=== PATIENT | male | born 1970 | race Caucasian/White ===

== ENCOUNTER 2020-01-28 19:03 | Observation (INO) | payer OTHER ==
--- NOTE | 2020-01-28 19:23 | ED ---
General Adult HPI - General Chief complaint: Chest Pain Stated complaint: Chest tightness/neck pain/fatigue Time Seen by Provider: 01/28/20 19:16 Source: patient, RN notes reviewed, old records reviewed Mode of arrival: ambulatory Limitations: no limitations - History of Present Illness Initial comments: 49-year-old male presented for evaluation of left-sided chest pain and pressure. Patient's symptoms have been present for approximately one week. Constant in nature. Not worsened by exertion. He has no known history of coronary artery disease. He denies any dyspnea. Denies fever. He states he has a mild cough which is at baseline. He is a current smoker. Denies lower extremity pain or swelling. Denies abdominal pain nausea vomiting. He did have some vague discomfort in his neck and has had some fatigue over the last week. No other associated symptoms. - Related Data Home Medications Medication Instructions Recorded Confirmed Hydrochlorothiazide 12.5 mg PO DAILY 01/28/20 01/28/20 Sertraline HCl [Zoloft] 50 mg PO BID 01/28/20 01/28/20 Allergies Allergy/AdvReac Type Severity Reaction Status Date / Time No Known Allergies Allergy Verified 01/28/20 19:56 Review of Systems ROS Statement: Those systems with pertinent positive or pertinent negative responses have been documented in the HPI. ROS Other: All systems not noted in ROS Statement are negative. Past Medical History Past Medical History: Hypertension History of Any Multi-Drug Resistant Organisms: None Reported Additional Past Surgical History / Comment(s): HEMORRHOIDECTOMY Past Anesthesia/Blood Transfusion Reactions: No Reported Reaction Past Psychological History: Anxiety Smoking Status: Current every day smoker Past Alcohol Use History: Occasional Past Drug Use History: None Reported - Past Family History Father Family Medical History: Cancer General Exam Limitations: no limitations General appearance: alert, in no apparent distress Head exam: Present: atraumatic, normocephalic Eye exam: Present: normal appearance, PERRL ENT exam: Present: normal exam Neck exam: Present: normal inspection. Absent: tenderness, meningismus Respiratory exam: Present: normal lung sounds bilaterally. Absent: respiratory distress, wheezes Cardiovascular Exam: Present: regular rate, normal rhythm, normal heart sounds GI/Abdominal exam: Present: soft. Absent: distended, tenderness, guarding, rebound Extremities exam: Present: normal inspection, normal capillary refill. Absent: pedal edema, calf tenderness Back exam: Present: normal inspection Neurological exam: Present: alert, oriented X3, CN II-XII intact. Absent: motor sensory deficit Psychiatric exam: Present: normal affect, normal mood Skin exam: Present: warm, dry, intact. Absent: cyanosis, diaphoretic Course Vital Signs 01/28/20 01/28/20 19:08 20:39 Temperature 98.0 F Pulse Rate 79 77 Respiratory 18 18 Rate Blood Pressure 160/72 146/71 O2 Sat by Pulse 98 96 Oximetry EKG Findings - EKG Comments: EKG Findings:: EKG: Normal sinus rhythm, rate of 81, WA interval 154, QRS duration 86, QTC 418, no ST segment elevation Medical Decision Making - Medical Decision Making 53-year-old male with history of hypertension, and current tobacco use presenting with left-sided chest pain and pressure. EKG showing sinus rhythm with no ST segment elevation. Chest x-ray negative for acute cardiopulmonary disease. Patient has mild leukocytosis, stable hemoglobin. He has normal electrolytes. Initial troponin is negative. Given this patient's risk factors he will be kept in observation for serial cardiac enzymes, telemetry, cardiology consultation. I discussed the case with the patient's primary care physician Dr. Ventura who will accept admission. - Lab Data Result diagrams: 01/28/20 19:20 01/28/20 19:20 Lab Results 01/28/20 01/28/20 01/28/20 Range/Units 19:20 19:20 19:20 WBC 12.2 H (3.8-10.6) k/uL RBC 4.76 (4.30-5.90) m/uL Hgb 14.2 (13.0-17.5) gm/dL Hct 42.5 (39.0-53.0) % MCV 89.2 (80.0-100.0) fL MCH 29.9 (25.0-35.0) pg MCHC 33.5 (31.0-37.0) g/dL RDW 13.0 (11.5-15.5) % Plt Count 294 (150-450) k/uL Neutrophils % 60 % Lymphocytes % 28 % Monocytes % 7 % Eosinophils % 2 % Basophils % 1 % Neutrophils # 7.3 (1.3-7.7) k/uL Lymphocytes # 3.4 (1.0-4.8) k/uL Monocytes # 0.9 (0-1.0) k/uL Eosinophils # 0.3 (0-0.7) k/uL Basophils # 0.1 (0-0.2) k/uL PT 9.6 (9.0-12.0) sec INR 0.9 (<1.2) APTT 24.3 (22.0-30.0) sec Sodium 133 L (137-145) mmol/L Potassium 4.1 (3.5-5.1) mmol/L Chloride 101 (98-107) mmol/L Carbon Dioxide 25 (22-30) mmol/L Anion Gap 7 mmol/L BUN 17 (9-20) mg/dL Creatinine 0.98 (0.66-1.25) mg/dL Est GFR (CKD-EPI)AfAm >90 (>60 ml/min/1.73 sqM) Est GFR (CKD-EPI)NonAf >90 (>60 ml/min/1.73 sqM) Glucose 106 H (74-99) mg/dL Calcium 9.6 (8.4-10.2) mg/dL Magnesium 2.1 (1.6-2.3) mg/dL Total Bilirubin <0.1 L (0.2-1.3) mg/dL AST 31 (17-59) U/L ALT 19 (4-49) U/L Alkaline Phosphatase 92 (38-126) U/L Troponin I (0.000-0.034) ng/mL NT-Pro-B Natriuret Pep pg/mL Total Protein 6.7 (6.3-8.2) g/dL Albumin 4.2 (3.5-5.0) g/dL Lipase 141 (23-300) U/L 01/28/20 01/28/20 Range/Units 19:20 19:20 WBC (3.8-10.6) k/uL RBC (4.30-5.90) m/uL Hgb (13.0-17.5) gm/dL Hct (39.0-53.0) % MCV (80.0-100.0) fL MCH (25.0-35.0) pg MCHC (31.0-37.0) g/dL RDW (11.5-15.5) % Plt Count (150-450) k/uL Neutrophils % % Lymphocytes % % Monocytes % % Eosinophils % % Basophils % % Neutrophils # (1.3-7.7) k/uL Lymphocytes # (1.0-4.8) k/uL Monocytes # (0-1.0) k/uL Eosinophils # (0-0.7) k/uL Basophils # (0-0.2) k/uL PT (9.0-12.0) sec INR (<1.2) APTT (22.0-30.0) sec Sodium (137-145) mmol/L Potassium (3.5-5.1) mmol/L Chloride (98-107) mmol/L Carbon Dioxide (22-30) mmol/L Anion Gap mmol/L BUN (9-20) mg/dL Creatinine (0.66-1.25) mg/dL Est GFR (CKD-EPI)AfAm (>60 ml/min/1.73 sqM) Est GFR (CKD-EPI)NonAf (>60 ml/min/1.73 sqM) Glucose (74-99) mg/dL Calcium (8.4-10.2) mg/dL Magnesium (1.6-2.3) mg/dL Total Bilirubin (0.2-1.3) mg/dL AST (17-59) U/L ALT (4-49) U/L Alkaline Phosphatase (38-126) U/L Troponin I <0.012 (0.000-0.034) ng/mL NT-Pro-B Natriuret Pep 34 pg/mL Total Protein (6.3-8.2) g/dL Albumin (3.5-5.0) g/dL Lipase (23-300) U/L Disposition Clinical Impression: Chest pain Disposition: ADMITTED IP TO THIS [facility] Condition: Stable Is patient prescribed a controlled substance at d/c from ED?: No Referrals: Kayode Ventura MD [Primary Care Provider] - 1-2 days Decision to Admit Reason: Admit from EC Decision Date: 01/28/20 Decision Time: 20:57
[2020-01-28 19:38] LABS: Basophils # (A) 0.1 k/uL (0-0.2); Basophils % (A) 1 %; Eosinophils # (A) 0.3 k/uL (0-0.7); Eosinophils % (A) 2 %; HCT 42.5 % (39.0-53.0); HGB 14.2 gm/dL (13.0-17.5); Lymphocytes # (A) 3.4 k/uL (1.0-4.8); Lymphocytes % (A) 28 %; MCH 29.9 pg (25.0-35.0); MCHC 33.5 g/dL (31.0-37.0); MCV 89.2 fL (80.0-100.0); Mean Platelet Volume 7.2; Monocytes # (A) 0.9 k/uL (0-1.0); Monocytes % (A) 7 %; Neutrophils # (A) 7.3 k/uL (1.3-7.7); Neutrophils % (A) 60 %; Platelet Count 294 k/uL (150-450); RBC 4.76 m/uL (4.30-5.90); WBC 12.2 k/uL (3.8-10.6)
--- NOTE | 2020-01-28 19:42 | XR ---
EXAMINATION TYPE: XR chest 2V DATE OF EXAM: 01/28/2020 COMPARISON: NONE HISTORY: Weakness TECHNIQUE: FINDINGS: Heart and mediastinum are normal. Lungs are clear. Diaphragm is normal. Bony thorax appears normal. There are chest leads. IMPRESSION: Normal chest.
[2020-01-28 19:45] LABS: ALT 19 U/L (4-49); AST 31 U/L (17-59); African American GFR (CKD) >90 (>60 ml/min/1.73 sqM); Albumin 4.2 g/dL (3.5-5.0); Alkaline Phosphatase 92 U/L (38-126); Anion Gap 7 mmol/L; Blood Urea Nitrogen 17 mg/dL (9-20); Calcium 9.6 mg/dL (8.4-10.2); Carbon Dioxide 25 mmol/L (22-30); Chloride 101 mmol/L (98-107); Glucose 106 mg/dL (74-99); Magnesium 2.1 mg/dL (1.6-2.3); Non-African American GFR(CKD) >90 (>60 ml/min/1.73 sqM); Potassium 4.1 mmol/L (3.5-5.1); Sodium 133 mmol/L (137-145); Total Bilirubin <0.1 mg/dL (0.2-1.3); Total Protein 6.7 g/dL (6.3-8.2)
[2020-01-28 20:03] LABS: INR 0.9 (<1.2)
[2020-01-28 20:04] LABS: Partial Thromboplastin Time 24.3 sec (22.0-30.0); Prothrombin Time 9.6 sec (9.0-12.0)
[2020-01-28] MEDS ORDERED: ASPIRIN 325 MG TAB PO STA (20:21)
[2020-01-28] MEDS ORDERED: MORPHINE SULFATE 4 MG/ML SYRINGE IV PRN (20:54)
[2020-01-28] MEDS ORDERED: NALOXONE 0.4 MG/ML 1 ML VIAL IV PRN (20:54)
[2020-01-28] MEDS ORDERED: ACETAMINOPHEN TAB 325 MG TAB PO PRN (20:54)
[2020-01-29] MEDS ORDERED: ASPIRIN 325 MG TAB PO SCH (09:00)
[2020-01-29] MEDS ORDERED: HYDROCHLOROTHIAZIDE 12.5 MG CAP PO SCH (09:00)
[2020-01-29 09:04] VITALS: RESP 16
[2020-01-29] MEDS ORDERED: ASPIRIN 81 MG PO SCH (09:30)
--- NOTE | 2020-01-29 09:45 | CONS ---
CONSULTATION Mr. Richard is a 49-year-old male with known history of hypertension, chronic tobacco use, who presented with symptoms of chest discomfort. The discomfort started a week ago, not activity related and constant. He did not have any respiratory phasic or positional pattern to it. He is usually active physically, has no exertional chest pain. Has no significant dyspnea on exertion. No dizziness. No palpitation. No syncope. No PND, nor orthopnea. He has no prior documented history of cardiac disease. MEDICATIONS: Include Zoloft 200 mg daily, hydrochlorothiazide 12 0.5 mg daily. REVIEW OF SYSTEMS: RESPIRATORY SYSTEM: Has no recent wheezing. No cough. No history of obstructive lung disease. GI SYSTEM: No recent GI bleed. No peptic ulcer disease. Gu System: No dysuria or hematuria. NERVOUS SYSTEM: No stroke or seizure. PHYSICAL EXAMINATION: A 49-year-old male, alert, oriented, in no apparent distress. Blood pressure 126/70 with a heart in the 60s. HEAD: Normocephalic. EYES: Sclerae nonicteric. NECK: Good upstroke, no bruit, no shunts tension clear to auscultation heart rhythm S1, S2. No S3. No S4. No murmur or rub. ABDOMEN: Soft nontender positive bowel sounds no organomegaly. EXTREMITIES: No edema, intact distal pulses. LAB DATA: Revealed troponin less than 0.012 for 3 samples. BUN and creatinine 17 and 0.98, potassium 4.1, hemoglobin of 14.2, white blood cell of 12.2. EKG revealed a sinus mechanism, normal axis and intervals. No acute changes. The chest x-ray revealed no acute infiltrate. IMPRESSION: 1. Chest discomfort of unclear etiology, has some atypical features for ischemic heart disease. 2. Chronic tobacco use. 3. Hypertension. RECOMMENDATION: I have recommend proceeding with a stress echocardiogram and a transthoracic echo to further assess his status and guide his treatment. Depending on the results of testing, further recommendation will be made. I have encouraged him to stop smoking. Thank you for this consult. Will follow with you. ESPINOZAL / GEORGESN: [id number] /
[2020-01-29 10:28] LABS: Cholesterol 210 mg/dL (<200); HDL Cholesterol 38 mg/dL (40-60); LDL Cholesterol,Calculated 134 mg/dL (0-99); Triglycerides 191 mg/dL (<150)
[2020-01-29 12:05] VITALS: TEMP 98.1
--- NOTE | 2020-01-29 13:27 | HP ---
HISTORY AND PHYSICAL This is a 49-year-old with history of hypertension, nicotine addiction with some chest discomfort, more like a pressure in his left side of his chest that he has had over 3 or 4 days. Did not have any cough, congestion, shortness of breath with exertion. Not made better by food, but he does eat lots of food late night before he goes to bed. He has a history of bad GERD. No history of cardiac disease, but he smokes a pack and half a day and he has severe stress in his life. HOME MEDICATIONS: 1. Zoloft 200 b.i.d. 2. Hydrochlorothiazide 12.5 b.i.d. once a day. REVIEW OF SYSTEMS: Fourteen-point review of system positive for: PSYCH: Anxiety. LUNGS: Clear. CARDIAC: Negative. VASCULAR: Negative. HEMATOLOGIC: Negative. IMMUNE: Negative. ENDOCRINE: He has been overweight, although he states he has lost some weight. PHYSICAL EXAMINATION: He appears anxious, nervous 49-year-old white male. He is sitting up in bed, eating dinner. His blood pressure 126/70, heart rate in the 60s. HEAD: Normocephalic, atraumatic. Pupils equal, round, reactive to light and accommodation. S1, S2. ABDOMEN: Soft, nontender. Positive bowel signs. EXTREMITIES: No edema. MUSCULOSKELETAL: Range of motion full x4. BMI is over 40. Troponins have been negative. BUN 17, creatinine 0.98, potassium 4.1, hemoglobin 14.2, white count 12.2. Chest x-ray is negative. D-dimer is negative. EKG nonspecific. ASSESSMENT: Atypical chest pain. He is going to get a stress echo today and if he passes that he will be able to be cleared by Cardiology and be discharged home. Nicotine cessation counseling was given to him. Blood pressure modification was given to him. Depression treatment. Treatment for GERD. No supine lying down, elevate head of his bed, no late night eating, that has all been discussed. MMODL / IJN: [id number] /
[2020-01-29 15:29] VITALS: BP 130/62; PULSE 70
--- NOTE | 2020-01-29 17:39 | ECHOF ---
Referral Reason:cp MEASUREMENTS -------- HEIGHT: 182.9 cm WEIGHT: 100.7 kg BP: IVSd: 1.1 cm (0.6 - 1.1) LVIDd: 4.4 cm (3.9 - 5.3) LVPWd: 1.3 cm (0.6 - 1.1) IVSs: 1.3 cm LVIDs: 2.7 cm LVPWs: 1.8 cm Ao Diam: 3.3 cm (2.0 - 3.7) AV Cusp: 2.1 cm (1.5 - 2.6) LA Diam: 3.3 cm (2.7 - 3.8) MV EXCURSION: 13.189 mm (> 18.000) MV EF SLOPE: 79 mm/s (70 - 150) EPSS: 0.8 cm MV E Peter: 0.88 m/s MV DecT: 253 ms MV A Peter: 0.50 m/s MV E/A Ratio: 1.77 RAP: 5.00 mmHg RVSP: 21.15 mmHg FINDINGS -------- Sinus rhythm. This was a technically good study. The left ventricular size is normal. Left ventricular wall thickness is normal. Overall left vent ricular systolic function is normal with, an EF between 55 - 60 %. The diastolic filling pattern is normal for the age of the patient 11.43. The right ventricle is normal in size. The left atrial size is normal. Normal LA size by volume 22+/-6 ml/m2. The right atrial size is normal. The aortic valve is trileaflet and appears structurally normal. The mitral valve is normal. There is trace mitral regurgitation. The tricuspid valve appears structurally normal. Trace tricuspid regurgitation present. Right mario tricular systolic pressure is normal at < 35 mmHg. There is no pulmonic regurgitation present. The aortic root size is normal. Normal inferior vena cava with normal inspiratory collapse consistent with estimated right atrial pre ssure of 5 mmHg. There is no pericardial effusion. CONCLUSIONS -------- 1. Sinus rhythm. 2. This was a technically good study. 3. The left ventricular size is normal. 4. Left ventricular wall thickness is normal. 5. Overall left ventricular systolic function is normal with, an EF between 55 - 60 %. 6. The diastolic filling pattern is normal for the age of the patient 11.43 7. The right ventricle is normal in size. 8. The left atrial size is normal. 9. Normal LA size by volume 22+/-6 ml/m2. 10. The right atrial size is normal. 11. The aortic valve is trileaflet and appears structurally normal. 12. The mitral valve is normal. 13. There is trace mitral regurgitation. 14. The tricuspid valve appears structurally normal. 15. Trace tricuspid regurgitation present. 16. Right ventricular systolic pressure is normal at < 35 mmHg. 17. There is no pulmonic regurgitation present. 18. The aortic root size is normal. 19. Normal inferior vena cava with normal inspiratory collapse consistent with estimated right atrial pressure of 5 mmHg. 20. There is no pericardial effusion. MANAGER BRAND: Estela Crisostomo RDCS
[2020-01-29] MEDS ORDERED: SERTRALINE 100 MG TAB PO SCH (21:00)
--- NOTE | 2020-01-30 11:12 | ECHOS ---
STRESS ECHOCARDIOGRAM INDICATIONS: Chest pain. MEDICATIONS: BASELINE HEART RATE: 68 BASELINE BLOOD PRESSURE: 136/55 MAXIMUM HEART RATE: 157 MAXIMUM BLOOD PRESSURE: 220/42 85% MPHR: 145 100% MPHR: 170 METS: 11.5 MAXIMUM STAGE REACHED: IV TOTAL EXERCISE TIME: 10 minutes CLINICAL INFORMATION: This is a stress echocardiographic study. Patient was exercised for a total period of 10 minutes. The peak heart rate of 157 was achieved. Maximum blood pressure of 220/42 mmHg was noted. The resting EKG shows normal sinus rhythm with normal MA interval and QRS duration and normal ST-T waves. No ST-segment depression suggestive of ischemia was noted. The baseline echocardiographic images reveals normal left ventricular chamber size with normal left ventricular systolic function. In the immediate postexercise periods, normal increase in the wall thickness and contractility is noted. FINAL IMPRESSION: This stress echocardiographic study is negative for stress-induced ischemia. Patient's exercise tolerance is normal. No dysrhythmias are noted. MMODL / IJN: [id number] /
== END 2020-01-29 19:09 | disposition home or self-care (01) ==
LOC: EC 19:03 → 1SOBS 20:54 → 3SCARD 01-29 07:49
PROVIDERS: ADMIT Family Medicine; ATTEND Family Medicine
DX: R07.89 Other chest pain (principal); M54.2 Cervicalgia; R53.83 Other fatigue; I10 Essential (primary) hypertension; F41.9 Anxiety disorder, unspecified; F17.210 Nicotine dependence, cigarettes, uncomplicated; K21.9 Gastro-esophageal reflux disease without esophagitis; Z79.899 Other long term (current) drug therapy; Z80.9 Family history of malignant neoplasm, unspecified; Z71.6 Tobacco abuse counseling
CPT/HCPCS: 99285; 36415; 93005; 93306; 93351; 85379; 83880; 80061; 80053; 83690; 83735; 84484 ×2; 85025; 85610; 85730; 71046; G0378 ×2

== ENCOUNTER → 2020-05-28 | Outpatient (CLI) | payer OTHER ==
[2020-05-28 12:38] LABS: Basophils # (A) 0.1 k/uL (0-0.2); Basophils % (A) 1 %; Eosinophils # (A) 0.1 k/uL (0-0.7); Eosinophils % (A) 1 %; HCT 44.9 % (39.0-53.0); Lymphocytes # (A) 3.1 k/uL (1.0-4.8); Lymphocytes % (A) 26 %; MCH 30.9 pg (25.0-35.0); MCHC 33.3 g/dL (31.0-37.0); MCV 92.6 fL (80.0-100.0); Mean Platelet Volume 7.2; Monocytes # (A) 0.7 k/uL (0-1.0); Monocytes % (A) 6 %; Neutrophils # (A) 7.7 k/uL (1.3-7.7); Neutrophils % (A) 65 %; Platelet Count 282 k/uL (150-450); RBC 4.84 m/uL (4.30-5.90); RDW 13.5 % (11.5-15.5); WBC 11.9 k/uL (3.8-10.6)
== END | disposition home or self-care (01) ==
LOC: LABPAT 10:25
PROVIDERS: ATTEND Surgery
DX: Z01.818 Encounter for other preprocedural examination (principal); K21.0 Gastro-esophageal reflux disease with esophagitis
CPT/HCPCS: 36415; 85025

== ENCOUNTER 2020-06-02 11:34 | Day surgery (SDC) | payer BC, OTHER ==
[2020-05-29 11:25] VITALS: BMI 29.9
[~2020-06-02 11:34] MED LIST: LACTATED RINGERS 1,000 ML IV SCH
[2020-06-02 11:53] VITALS: TEMP 98.1
[2020-06-02] MEDS ORDERED: LIDOCAINE 1% (10MG/ML) FOR IV START INTRADERMA ONE (11:54)
[2020-06-02] MEDS ORDERED: MIDAZOLAM 2 MG/2 ML VIAL ONE (12:23)
[2020-06-02] MEDS ORDERED: PROPOFOL 10 MG/ML 20 ML VIAL IV ONE (12:23)
[2020-06-02] MEDS ORDERED: LIDOCAINE 1% INJ 10MG/ML (20 ML MDV) ONE (12:23)
--- NOTE | 2020-06-02 12:27 | P.GSHP ---
History of Present Illness H&P Date: 06/02/20 Chief Complaint: GERD This 49-year-old male referred from Dr. Kayode Hoffmann. Patient safer EGD. He's had issues with GERD. Past Medical History Past Medical History: Asthma, Chest Pain / Angina, GERD/Reflux, Hypertension, Pneumonia, Sleep Apnea/CPAP/BIPAP Additional Past Medical History / Comment(s): Pt states he had a nuclear stress test when he was 25 or 26 yrs [id number] attributes his chest pain at that time to anxiety, ROXY with CPap, childhood asthma, bronchitis. History of Any Multi-Drug Resistant Organisms: None Reported Additional Past Surgical History / Comment(s): HEMORRHOIDECTOMY, EGD, colonoscopy, deviated septal surgery, bilateral cataract removals/lens implants. family hx of barretts esophagus and esophageal cancer Past Anesthesia/Blood Transfusion Reactions: No Reported Reaction Smoking Status: Current every day smoker - Past Family History Father Family Medical History: Cancer Additional Family Medical History / Comment(s): Father of metastatic cancer (primary unknown) at the age of 62 yrs. Mother Family Medical History: No Reported History Additional Family Medical History / Comment(s): Mother is healthy and is 78yrs old. Medications and Allergies Home Medications Medication Instructions Recorded Confirmed Type Hydrochlorothiazide 25 mg PO DAILY 01/28/20 06/02/20 History Aspirin 81 mg PO DAILY #0 chewable 01/29/20 06/02/20 Rx Sertraline [Zoloft] 200 mg PO HS 01/29/20 06/02/20 History Albuterol Inhaler [Ventolin Hfa 1 puff INHALATION DAILY PRN 05/29/20 06/02/20 History Inhaler] Omeprazole [PriLOSEC] 40 mg PO BID 05/29/20 06/02/20 History Allergies Allergy/AdvReac Type Severity Reaction Status Date / Time No Known Allergies Allergy Verified 06/02/20 11:49 Surgical - Exam Vital Signs Temp Pulse Resp BP Pulse Ox 98.1 F 102 H 18 168/84 97 06/02/20 11:51 06/02/20 11:51 06/02/20 11:51 06/02/20 11:51 06/02/20 11:51 - General well developed, well nourished, no distress - Eyes PERRL - ENT normal pinna - Neck no masses - Respiratory normal expansion - Cardiovascular Rhythm: regular - Abdomen Abdomen: soft, non tender Assessment and Plan Assessment: GERD. We'll perform EGD.
--- NOTE | 2020-06-02 12:35 | P.OP ---
Date of Procedure: 06/02/20 Preoperative Diagnosis: GERD Postoperative Diagnosis: Mild antral gastritis Severe erosive esophagitis Small hiatal hernia Procedure(s) Performed: EGD Anesthesia: MAC Surgeon: Jun Canchola Pathology: other (Antrum, esophagus) Condition: stable Disposition: PACU Description of Procedure: The patient's placed on the endoscopy table lateral position. He received IV sedation. The gastroscopeoropharynx and passed in the esophagus and the stomach. Scope was then placed through the pylorus. The first and second portion of duodenum. SCOPE was then brought back the antrum and this was mildly inflamed. A biopsies performed. Scope was unretroflexed and remainder the stomach appeared normal. The GE junction was at 38 cm. The patient had a small hiatal hernia. The distal esophagus was very inflamed. There was evidence of erosive esophagitis. Several biopsies of his performed. The proximal esophagus appeared normal. Scope was withdrawn for patient.
[2020-06-02 12:47] VITALS: RESP 16
[2020-06-02 13:40] VITALS: BP 143/75; PULSE 65
== END 2020-06-02 13:43 | disposition home or self-care (01) ==
LOC: ORWHC2ENDO 11:34
PROVIDERS: ATTEND Surgery
DX: C15.5 Malignant neoplasm of lower third of esophagus (principal); K21.0 Gastro-esophageal reflux disease with esophagitis; K22.10 Ulcer of esophagus without bleeding; K29.70 Gastritis, unspecified, without bleeding; K44.9 Diaphragmatic hernia without obstruction or gangrene; I10 Essential (primary) hypertension; G47.33 Obstructive sleep apnea (adult) (pediatric); F17.210 Nicotine dependence, cigarettes, uncomplicated; F41.9 Anxiety disorder, unspecified; Z87.01 Personal history of pneumonia (recurrent); Z99.89 Dependence on other enabling machines and devices; Z87.09 Personal history of other diseases of the respiratory system; Z98.890 Other specified postprocedural states; Z87.19 Personal history of other diseases of the digestive system; Z98.41 Cataract extraction status, right eye; Z98.42 Cataract extraction status, left eye; Z96.1 Presence of intraocular lens; Z79.899 Other long term (current) drug therapy; Z79.82 Long term (current) use of aspirin; Z83.79 Family history of other diseases of the digestive system; Z80.0 Family history of malignant neoplasm of digestive organs; Z80.9 Family history of malignant neoplasm, unspecified
CPT/HCPCS: 88305; 88342; 88341; 43239; J2250; J2001; J2704

== ENCOUNTER 2020-06-04 07:45 | Inpatient (IN) | payer BC, OTHER ==
[2020-06-03 11:02] VITALS: BMI 29.2
[~2020-06-04 07:45] MED LIST changes: +ACETAMINOPHEN TAB 500 MG TAB PO ONE; +DEXAMETHASONE SOD PHOSPHATE 10 MG/ML 1 ML VIAL IV ONE; +HEPARIN SODIUM,PORCINE 5,000 UNIT/ML 1 ML VIAL SQ ONE; +HYDROmorphone 0.5 MG/0.5 ML SYRINGE IVP PRN; -LACTATED RINGERS 1,000 ML IV SCH; +LIDOCAINE 1% (10MG/ML) FOR IV START INTRADERMA PRN; +MIDAZOLAM 2 MG/2 ML VIAL IV PRN; +ONDANSETRON 4 MG/2 ML VIAL IVP ONE; +fentaNYL (PF) 50 MCG/ML 2 ML AMP IVP PRN
[2020-06-04] MEDS ORDERED: HEPARIN SODIUM,PORCINE 5,000 UNIT/ML 1 ML VIAL ONE (11:15)
[2020-06-04] MEDS ORDERED: DEXAMETHASONE SOD PHOSPHATE 10 MG/ML 1 ML VIAL ONE (11:15)
[2020-06-04] MEDS ORDERED: ONDANSETRON 4 MG/2 ML VIAL ONE (11:15)
[2020-06-04] MEDS ORDERED: MIDAZOLAM 2 MG/2 ML VIAL ONE ×2 (11:15→12:30)
[2020-06-04] MEDS ORDERED: ROCURONIUM BROMIDE 10 MG/ML 5 ML VIAL IV ONE (12:30)
[2020-06-04] MEDS ORDERED: PROPOFOL 10 MG/ML 20 ML VIAL IV ONE (12:30)
[2020-06-04] MEDS ORDERED: GLYCOPYRROLATE 0.2 MG/ML 2 ML VIAL ONE (12:30)
[2020-06-04] MEDS ORDERED: fentaNYL (PF) 50 MCG/ML 2 ML AMP ONE (12:30)
[2020-06-04] MEDS ORDERED: SUCCINYLCHOLINE CHLORIDE 100 MG/5 ML SYR IV ONE (12:30)
[2020-06-04] MEDS ORDERED: KETOROLAC 30 MG/ML 1 ML VIAL ONE (12:30)
[2020-06-04] MEDS ORDERED: HYDROmorphone (PF) 1 MG/ML ONE (12:30)
[2020-06-04] MEDS ORDERED: LIDOCAINE 1% INJ 10MG/ML (20 ML MDV) ONE (12:30)
[2020-06-04] MEDS ORDERED: NEOSTIGMINE 1 MG/ML 10 ML VIAL ONE (12:30)
[2020-06-04] MEDS ORDERED: IV FLUID CONTINUATION 800 ML IV ONE (12:34)
--- NOTE | 2020-06-04 12:46 | P.GSHP ---
History of Present Illness H&P Date: 06/04/20 Chief Complaint: GERD This a 49-year-old male referred from Dr. Kayode Hoffmann. MThe patient has had long-standing problems with reflux esophagitis. The patient underwent recent EGD is found have evidence of esophagitis. Patient has been well informed on t he procedure of laparoscopic Claire fundoplication. The patient is aware the risk of the conversion to the open procedure, risk of injury to the stomach, liver and spleen. The patient is also a risk of recurrent GERD and dysphagia symptoms. The patient understands there is a postoperative diet of full liquids for 2 weeks after surgery. Past Medical History Past Medical History: Asthma, Chest Pain / Angina, GERD/Reflux, Hypertension, Pneumonia, Sleep Apnea/CPAP/BIPAP Additional Past Medical History / Comment(s): Pt states he had a nuclear stress test when he was 25 or 26 yrs [id number] attributes his chest pain at that time to anxiety, ROXY with CPap, childhood asthma, bronchitis. History of Any Multi-Drug Resistant Organisms: None Reported Additional Past Surgical History / Comment(s): HEMORRHOIDECTOMY, EGD, colonoscopy, deviated septal surgery, bilateral cataract removals/lens implants. Past Anesthesia/Blood Transfusion Reactions: No Reported Reaction Smoking Status: Current every day smoker - Past Family History Father Family Medical History: Cancer Additional Family Medical History / Comment(s): Father of metastatic cancer (primary unknown) at the age of 62 yrs. Mother Family Medical History: No Reported History Additional Family Medical History / Comment(s): Mother is healthy and is 78yrs old. Medications and Allergies Home Medications Medication Instructions Recorded Confirmed Type Hydrochlorothiazide 25 mg PO DAILY 01/28/20 06/03/20 History Aspirin 81 mg PO DAILY #0 chewable 01/29/20 06/03/20 Rx Sertraline [Zoloft] 200 mg PO HS 01/29/20 06/03/20 History Albuterol Inhaler [Ventolin Hfa 1 puff INHALATION DAILY PRN 05/29/20 06/03/20 History Inhaler] Omeprazole [PriLOSEC] 40 mg PO BID 05/29/20 06/03/20 History Allergies Allergy/AdvReac Type Severity Reaction Status Date / Time No Known Allergies Allergy Verified 06/03/20 10:54 Surgical - Exam - General well developed, well nourished, no distress - Eyes PERRL - ENT normal pinna - Neck no masses - Respiratory normal expansion - Cardiovascular Rhythm: regular - Abdomen Abdomen: soft, non tender Assessment and Plan Assessment: GERD. We'll perform Claire fundal location. Patient reversed surgery including dysphagia. And injury to the stomach liver spleen.
[2020-06-04] MEDS ORDERED: BUPIVACAIN-EPI 0.25%-1:200,000 30 ML VIAL SQ ONE (13:03)
--- NOTE | 2020-06-04 13:32 | P.OP ---
Date of Procedure: 06/04/20 Preoperative Diagnosis: GERD Hiatal hernia Postoperative Diagnosis: Hiatal hernia GERD Procedure(s) Performed: Laparoscopic Claire fundal plication Anesthesia: MELISSA Surgeon: Jun Canchola Estimated Blood Loss (ml): 10 Pathology: none sent Condition: stable Disposition: PACU Description of Procedure: The patient was placed on the operating table in the supine position. The patient received general anesthesia. And was placed in dorsal lithotomy position. The patient was prepped and draped in the usual sterile fashion. The skin incision sites were anesthetized with 1% local Xylocaine. The skin was incised in the left periumbilical area and then using a blade less 5 mm trocar under direct visualization panel cavity was entered. After adequate insufflation the laparoscope was then placed into the peritoneal cavity. Next a 5 mm trochars placed in the right epigastric position. Another 5 millimeter trocar the right lateral position. Another 5 millimeter trocar in the left lateral position a 5 mm trocar is placed in the left epigastric position. And t hen the initial 5 mm trocar was exchanged for a 10 mm trocar. The left lateral lobe liver was retracted. The hernia was seen. The crural defect was then dissected using the Harmonic scissors device. A 360 crural dissection was performed the esophagus stomach was reduced back into the peritoneal Cavity. The crural defect was then closed using 2-0 Ethibond suture. Next the fundus of the stomach was mobilized using the Harmonic scissors device. and then a 58- Sammarinese bougie dilator was placed oropharynx passed into the esophagus and stomach the fundal plication wrap was then performed by grasping the fundus posteriorly and bringing it around the esophagus and stomach fundoplication was then performed using 2-0 Ethibond suture. A 180 wrap was performed Care was taken that the fundal location rested over top of the intra-abdominal esophagus. There was no injury seen to the stomach or esophagus. The dilator was then withdrawn. The abdomen was irrigated there is no bleeding seen. The trochars were then withdrawn and then skin incision sites were closed using 3-0 Monocryl suture Steri-Strips are applied. Patient thought procedure well and sent to recovery room in stable condition.
[2020-06-04] MEDS: hydrALAZINE HCL 20 MG/ML 1 ML VIAL IVP ONE ×2 (14:12→14:24)
[2020-06-04] MEDS ORDERED: ONDANSETRON 4 MG/2 ML VIAL IVP PRN (17:34)
[2020-06-04] MEDS ORDERED: HYDROmorphone 1 MG/ML 1 ML SYRINGE IVP PRN (17:34)
[2020-06-04] MEDS ORDERED: ALBUTEROL NEBULIZED 2.5 MG/3 ML INHALATION PRN (20:06)
[2020-06-04] MEDS ORDERED: ACETAMINOPHEN TAB 325 MG TAB PO PRN (20:09)
[2020-06-04 20:30] LABS: African American GFR (CKD) >90 (>60 ml/min/1.73 sqM); Anion Gap 11 mmol/L; Blood Urea Nitrogen 10 mg/dL (9-20); Calcium 9.7 mg/dL (8.4-10.2); Carbon Dioxide 24 mmol/L (22-30); Chloride 98 mmol/L (98-107); Glucose 134 mg/dL (74-99); Non-African American GFR(CKD) >90 (>60 ml/min/1.73 sqM); Potassium 3.8 mmol/L (3.5-5.1); Sodium 133 mmol/L (137-145)
[2020-06-04] MEDS ORDERED: SERTRALINE 100 MG TAB PO SCH (21:00)
[2020-06-04] MEDS ORDERED: ALBUTEROL HFA INHALER INHALATION PRN (21:08)
--- NOTE | 2020-06-04 22:01 | CT ---
EXAMINATION TYPE: CT chest abdomen w con DATE OF EXAM: 06/04/2020 COMPARISON: None HISTORY: Esophageal cancer. CT DLP: 1156.9 mGycm Automated exposure control for dose reduction was used. CONTRAST: Performed with IV Contrast, patient injected with 100ml mL of Isovue 300. Multiple axial sections were obtained from the thoracic inlet to the iliac crests with IV contrast. There is some pulmonary emphysema. There is no mediastinal adenopathy. Thoracic aorta is intact. Ther e is no aneurysm or dissection. There are no hilar masses. Heart size is normal. There is no pericard ial effusion. There is some patchy atelectasis at the posterior lung bases. There is no pleural effus ion. There is pneumoperitoneum. This relates to the patient's recent surgery of Lc surgery. Liver show s no focal defect. Spleen is intact. Stomach is intact. There is hiatal hernia. There are surgical cl ips at the esophageal hiatus. Gallbladder appears normal. There is no adrenal mass. Kidneys show sati sfactory contrast opacification. There is no hydronephrosis. The bile ducts are not dilated. There is no evidence of retroperitoneal adenopathy. Delayed images show normal renal excretion. The thoracic and lumbar vertebra show normal alignment. Sternum is intact. Bony thorax is intact. IMPRESSION: Emphysema. Mild atelectasis at the lung bases. Recent surgery with small pneumoperitoneum. No evidenc e of metastatic disease.
--- NOTE | 2020-06-05 00:20 | CONS ---
CONSULTATION This is a 49-year-old white male who was admitted to the hospital for EGD status post Claire surgery. He was found to have on EGD adenocarcinoma of distal esophagus. Will do CT of the chest and abdomen tonight to evaluate for metastatic disease and get surgical consult for thoracic surgeon. MEDICATIONS: Home medicines will be continued. REVIEW OF SYSTEMS: Fourteen-point review of systems negative except for mentioned in HPI. PHYSICAL EXAMINATION: VITAL SIGNS: Stable, afebrile. CARDIOVASCULAR: S1, S2. LUNGS: Clear. PSYCH: Fair mood and affect. NEUROLOGIC: Alert and oriented x3. GI: Soft. ASSESSMENT: 1. Status post Claire. 2. Adenocarcinoma of the esophagus. 3. Hypertension. 4. Asthma. Continue current treatments. Follow up in the next 24 to 48 hours. MMODL / IJN: [id number] /
[2020-06-05] MEDS: LACTATED RINGERS 1,000 ML IV SCH ×4 (03:33→05:18)
[2020-06-05] MEDS: PANTOPRAZOLE 40 MG TABLET PO SCH ×2 (03:34→09:54)
[2020-06-05 07:40] LABS: HCT 42.8 % (39.0-53.0); HGB 14.5 gm/dL (13.0-17.5); MCH 31.4 pg (25.0-35.0); MCV 92.3 fL (80.0-100.0); Mean Platelet Volume 7.2; Platelet Count 288 k/uL (150-450); RBC 4.63 m/uL (4.30-5.90); RDW 13.2 % (11.5-15.5)
[2020-06-05] MEDS ORDERED: ALBUTEROL HFA INHALER INHALATION PRN (07:54)
[2020-06-05 08:02] LABS: African American GFR (CKD) >90 (>60 ml/min/1.73 sqM); Anion Gap 7 mmol/L; Blood Urea Nitrogen 9 mg/dL (9-20); Calcium 9.3 mg/dL (8.4-10.2); Carbon Dioxide 29 mmol/L (22-30); Chloride 100 mmol/L (98-107); Glucose 100 mg/dL (74-99); Non-African American GFR(CKD) >90 (>60 ml/min/1.73 sqM); Potassium 3.9 mmol/L (3.5-5.1); Sodium 136 mmol/L (137-145)
[2020-06-05] MEDS ORDERED: HYDROCHLOROTHIAZIDE 25 MG TAB PO SCH (09:00)
[2020-06-05] MEDS ORDERED: NON FORMULARY DRUG (Omeprazole 40 MG) PO SCH (09:00)
[2020-06-05] MEDS ORDERED: ENOXAPARIN 40 MG/0.4 ML SYRINGE SQ SCH (09:00)
[2020-06-05] MEDS ORDERED: ASPIRIN 81 MG PO SCH (09:00)
--- NOTE | 2020-06-05 10:01 | FL ---
SINGLE CONTRAST UPPER GI WITH ESOPHAGRAM: CLINICAL HISTORY: 49-year-old male status post Claire fundoplication. Patient with endoscopy and bio psy 4 days ago with results which just returned as esophageal cancer. TECHNIQUE: Single contrast exam performed with 50 ml Isovue-370 contrast. Comparison: Recent CT 06/04/2020 Total fluoroscopy time: 1 minute 49 seconds Total images: 24 FINDINGS: The patient swallowed oral contrast without difficulty or delay. Esophageal peristalsis and motility are within normal limits. There are postsurgical changes of Claire fundoplication. However, above th e surgical level within the distal esophagus, there is short segment annular narrowing contributing t o a mild relative obstruction. There is no evidence of contrast extravasation to suggest leak. The pa rtially filled stomach shows no gross abnormality. Small amount of post surgical free air below each hemidiaphragm. IMPRESSION: 1. The patient's recent CT is reviewed and shows changes of Claire fundoplication and annular eccentr ic thickening of the distal esophagus corresponding to the site of patient's biopsy proven esophageal cancer. 2. In addition, there is a mildly enlarged gastrohepatic ligament lymph node in the upper abdomen (ax ial image 58) measuring 1.1 cm short axis which could be reactive or metastatic. Consideration can be given to PET CT for staging purposes. 3. Status post Claire fundoplication. Mild relative obstruction at the distal esophagus likely corres ponding to the site of patient's biopsy-proven carcinoma. No evidence of leak. Mild postsurgical free air.
--- NOTE | 2020-06-05 11:06 | P.DS ---
Providers Date of admission: 06/04/20 10:10 Expected date of discharge: 06/05/20 Attending physician: Jun Canchola Consults: 06/04/20 16:17 Consult Physician Routine Consulting Provider: Kayode Ventura Reason/Comments: medical management Do you want consulting provider notified?: Yes Primary care physician: [facility] Hospital Course: This a 49-year-old male underwent repair of hiatal hernia. Please see hospital chart for details. Patient did well postoperatively.. Procedures: Laparoscopic Claire fundoplication Patient Condition at Discharge: Good Plan - Discharge Summary Discharge Rx Participant: No New Discharge Prescriptions: New Docusate [Colace] 100 mg PO BID #20 capsule HYDROcodone/APAP 5-325MG [Canton 5-325] 1 tab PO Q6HR PRN #10 tab PRN Reason: Pain No Action Hydrochlorothiazide 25 mg PO DAILY Sertraline [Zoloft] 200 mg PO HS Aspirin 81 mg PO DAILY #0 chewable Omeprazole [PriLOSEC] 40 mg PO BID Albuterol Inhaler [Ventolin Hfa Inhaler] 1 puff INHALATION DAILY PRN PRN Reason: Dyspnea Discharge Medication List Hydrochlorothiazide 25 mg PO DAILY 01/28/20 [History] Aspirin 81 mg PO DAILY #0 chewable 01/29/20 [Rx] Sertraline [Zoloft] 200 mg PO HS 01/29/20 [History] Albuterol Inhaler [Ventolin Hfa Inhaler] 1 puff INHALATION DAILY PRN 05/29/20 [History] Omeprazole [PriLOSEC] 40 mg PO BID 05/29/20 [History] Docusate [Colace] 100 mg PO BID #20 capsule 06/05/20 [Rx] HYDROcodone/APAP 5-325MG [Canton 5-325] 1 tab PO Q6HR PRN #10 tab 06/05/20 [Rx] Follow up Appointment(s)/Referral(s): Jun Canchola MD [STAFF PHYSICIAN] - 06/10/20
[2020-06-06 08:41] VITALS: BP 162/83; PULSE 59; RESP 20; TEMP 97.8
== END 2020-06-05 12:48 | disposition home or self-care (01) | DRG 328 ==
LOC: 2ORMAIN 10:10 → 4SSUR 14:16
PROVIDERS: ADMIT Surgery; ATTEND Surgery
PROC: 0DV44ZZ Restriction of Esophagogastric Junction, Percutaneous Endoscopic Approach (ICD-10-PCS; principal; 2020-06-04 11:50)
DX: C15.5 Malignant neoplasm of lower third of esophagus (principal); F17.210 Nicotine dependence, cigarettes, uncomplicated; I10 Essential (primary) hypertension; J45.909 Unspecified asthma, uncomplicated; K21.9 Gastro-esophageal reflux disease without esophagitis; K44.9 Diaphragmatic hernia without obstruction or gangrene; R13.10 Dysphagia, unspecified; G47.33 Obstructive sleep apnea (adult) (pediatric); Z99.89 Dependence on other enabling machines and devices; Z87.01 Personal history of pneumonia (recurrent); Z98.42 Cataract extraction status, left eye; Z98.41 Cataract extraction status, right eye; Z96.1 Presence of intraocular lens; Z79.82 Long term (current) use of aspirin; Z79.899 Other long term (current) drug therapy; Z80.9 Family history of malignant neoplasm, unspecified
CPT/HCPCS: 71260; 74160; 80048; 84132; 85027

== ENCOUNTER → 2020-06-20 | Outpatient (CLI) | payer BC, OTHER ==
--- NOTE | 2020-06-23 08:04 | PE ---
Nuclear medicine PET/CT HISTORY: Esophageal carcinoma, initial Patient received 11.2 mCi F-18 FDG intravenously in delayed scanning was performed from the skull bas e to the mid thighs. Localization and attenuation correction CT scan was performed. Correlation CT chest abdomen 06/04/2020 Chest and neck: Emphysematous changes are noted within the lungs. There is no cervical or supraclavic ular adenopathy. No mediastinal, axillary, or hilar adenopathy. There are coronary artery calcificati ons. There is no lung mass. The distal esophagus shows abnormal thickening, there is associated hyper metabolic uptake. No pleural or pericardial effusion. ABDOMEN: Along the lesser curvature stomach there is a soft tissue nodule shows associated hypermetab olic uptake. No ascites or evident liver mass. No adrenal lesion. Osseous structures are within normal limits, there is degenerative disc change lumbar spine. No suspi cious uptake. IMPRESSION: Findings compatible with esophageal carcinoma with raffaele uptake at the level of the lesse r curvature stomach.
== END | disposition home or self-care (01) ==
LOC: RADPETMAIN 15:30
PROVIDERS: ATTEND Surgery
DX: C15.9 Malignant neoplasm of esophagus, unspecified (principal)
CPT/HCPCS: 78815; A9552

== ENCOUNTER 2020-08-24 13:30 | Observation (INO) | payer BC, OTHER ==
[2020-08-24] MEDS ORDERED: SODIUM CHLORIDE 0.9% 500 ML 500 ML IV STA (14:01)
[2020-08-24 14:57] LABS: Appearance,Urine Clear (Clear); Bilirubin,Urine Negative (Negative); Blood,Urine Negative (Negative); Color,Urine Yellow; Glucose,Urine (UA) Negative (Negative); Ketones,Urine 3+ (Negative); Leukocyte Esterase,Urine Negative (Negative); Nitrite,Urine Negative (Negative); Protein,Urine Trace (Negative); Specific Gravity,Urine 1.014 (1.001-1.035); Urobilinogen,Urine <2.0 mg/dL (<2.0)
--- NOTE | 2020-08-24 15:01 | ED ---
Dizziness HPI - General Source: patient, family Mode of arrival: wheelchair Limitations: no limitations <Salina Lang - Last Filed: 08/24/20 18:54> <AbdelrahmantysonChipReba Solis - Last Filed: 08/25/20 14:33> - General Chief Complaint: Dizziness Stated Complaint: Weakness, Vomiting Time Seen by Provider: 08/24/20 14:01 - History of Present Illness Initial Comments: 49-year-old male history of stage III esophageal cancer presents emergency department today for chief complaint of generalized weakness, lightheaded sensation. Patient states that for the past 2 days he has felt lightheaded as though he is Always stands up. Patient states the room is not spinning he does not believe is vertigo he denies any headache visual changes denies any localized weakness. Patient denies any chest pain shortness of breath leg swell ing he denies any pain with deep inspiration. Patient denies any falls. He states he just feels unwell. Patient does have some associated nausea and vomiting that occurs every time he has chemotherapy which occurs every Tuesday. Patient states that he is due for chemotherapy tomorrow. Patient has been struggling with low platelets as well as dropping hemoglobin. He was told by his oncologist to come to [facility] for laboratory studies. Patient states he also has been struggling with low potassium radial review of systems negative. Pt is on carboplatin, receiving radiation. (Salina Lang) - Related Data Home Medications Medication Instructions Recorded Confirmed Hydrochlorothiazide 25 mg PO DAILY 01/28/20 08/24/20 [hydroCHLOROthiazide] Sertraline [Zoloft] 200 mg PO HS 01/29/20 08/24/20 Albuterol Inhaler [Ventolin Hfa 1 puff INHALATION RT-Q6H PRN 05/29/20 08/24/20 Inhaler] HYDROcodone/APAP 7.5-325MG [Jeremiah 1 tab PO Q6HR PRN 08/24/20 08/24/20 7.5-325] LORazepam [Ativan] 0.5 mg PO BID 08/24/20 08/24/20 OLANZapine [ZyPREXA] 5 mg PO HS 08/24/20 08/24/20 Ondansetron HCl [Zofran] 4 mg PO Q8H PRN 08/24/20 08/24/20 Prochlorperazine [Compazine] 10 mg PO Q4H PRN 08/24/20 08/24/20 Allergies Allergy/AdvReac Type Severity Reaction Status Date / Time No Known Allergies Allergy Verified 08/24/20 17:24 Review of Systems ROS Other: All systems not noted in ROS Statement are negative. <Salina Lang Radha - Last Filed: 08/24/20 18:54> ROS Other: All systems not noted in ROS Statement are negative. <Chip Royah Solis - Last Filed: 08/25/20 14:33> ROS Statement: Those systems with pertinent positive or pertinent negative responses have been documented in the HPI. Past Medical History Past Medical History: Asthma, Cancer, Chest Pain / Angina, GERD/Reflux, Hypertension, Pneumonia, Sleep Apnea/CPAP/BIPAP Additional Past Medical History / Comment(s): Pt states he had a nuclear stress test when he was 25 or 26 yrs [id number] attributes his chest pain at that time to anxiety, ROXY with CPap, childhood asthma, bronchitis. stage 3 esophagial cancer History of Any Multi-Drug Resistant Organisms: None Reported Additional Past Surgical History / Comment(s): HEMORRHOIDECTOMY, EGD, colonoscopy, deviated septal surgery, bilateral cataract removals/lens implants. dundo Past Anesthesia/Blood Transfusion Reactions: No Reported Reaction Past Psychological History: Anxiety Smoking Status: Current every day smoker Past Alcohol Use History: None Reported Past Drug Use History: None Reported - Past Family History Father Family Medical History: Cancer Additional Family Medical History / Comment(s): Father of metastatic cancer (primary unknown) at the age of 62 yrs. Mother Family Medical History: No Reported History Additional Family Medical History / Comment(s): Mother is healthy and is 78yrs old. <TadappleLeslySalina L - Last Filed: 08/24/20 18:54> General Exam Limitations: no limitations <TadappleSalina L - Last Filed: 08/24/20 18:54> - General Exam Comments Initial Comments: General: The patient is awake and alert, in no distress Eye: +3 mm pupils are equal, round and reactive to light, extra-ocular movements are intact. No nystagmus. There is normal conjunctiva bilaterally. No signs of icterus. Ears, nose, mouth and throat: There are moist mucous membranes and no oral lesions. Neck: The neck is supple, there is no tenderness or JVD. Cardiovascular: There is a regular rate and rhythm. No murmur, rub or gallop is appreciated. Respiratory: Lungs are clear to auscultation, respirations are non-labored, breath sounds are equal. No wheezes, stridor, rales, or rhonchi. Gastrointestinal: Soft, non-distended, non-tender abdomen without masses or or ganomegaly noted. There is no rebound or guarding present. Musculoskeletal: Normal ROM, no tenderness. Strength 5/5. Sensation intact. Radial and DP pulses equal bilaterally 2+. Neurological: A&O x 3. CN II-XII intact grossly, There are no obvious motor or sensory deficits. Coordination appears grossly intact. Speech is normal. Skin: Skin is warm and dry and no rashes or lesions are noted. No LE edema, no calf pain, or swleling. Psychiatric: Cooperative, appropriate mood & affect, normal judgment. (Salina Lang) Course Vital Signs 08/24/20 08/24/20 13:43 15:29 Temperature 98.3 F Pulse Rate 93 Pulse Rate [ 101 H Sitting Supervisor Travel Trailer] Pulse Rate [ 124 H Standing Supervisor Travel Trailer ] Pulse Rate [ 98 Supine Supervisor Travel Trailer] Respiratory 18 Rate Blood Pressure 114/75 Blood Pressure 135/75 [Right Arm Sitting] Blood Pressure 114/70 [Right Arm Standing] Blood Pressure 136/82 [Right Arm Supine] O2 Sat by Pulse 999 H Oximetry Medical Decision Making - Lab Data Result diagrams: 08/24/20 14:15 08/24/20 14:15 <Salina Lang - Last Filed: 08/24/20 18:54> - Lab Data Result diagrams: 08/25/20 08:16 08/25/20 08:16 <Reba Roy - Last Filed: 08/25/20 14:33> - Medical Decision Making Patient has leukopenia he has a drop in his hemoglobin I reviewed patient's Epic labs they provided on his phone it appeared that Tuesday his hemoglobin was 12.8 today 10.8. Platelets 65 which are stable compared to Tuesday's. Patient denies any rectal bleeding or black stools. Patient slightly orthostatic with decrease in systolic blood pressure from sitting to standing. Patient denies any chest pain shortness of breath patient has low potassium at 2.6 which was replaced orally and by IV. Patietn has not acute ekg changes, troponin (-) lung nodules on CXR was discussed patient believes it is old. I soke with Dr. Kel juares for patients oncologist who recommended keeping patient here at [facility] for rest, fluids, telemetry and potassium replacement. Patient is agreeable and prefers admission to this hospital. Patient Radiology/oncologist Dr. Aguilar contacted me requesting GI consult for Dobhoff placmeent with clicking machine operator consult for tube feedings. SHe states patient is NOT TO RECEIVE A G TUBE as it will interfere with treatment plan. Consultations placed. Patient can tolerate oral intake. Pain medications, IVF ordered. Case dsicussed with Dr. Roy who is agreeable to car eplan and admission. pt appears stable. Spoke with accepting admitting provider covering. (Salina Lang) I was available for consultation in the emergency department. The history and physical exam were done by the midlevel provider. I was consulted for this patients care. I reviewed the case with the midlevel provider and based on their presentation of the patient, I agree with the assessment, medical decision making and plan of care as documented. Chart was dictated using rPath dictation software. Attempts were made to correct any dictation errors however some typographical errors may persist. Patient was seen during a national state of emergency due to the Covid-19 pandemic. (Reba Roy) - Lab Data Lab Results 08/24/20 08/24/20 08/24/20 Range/Units 14:15 14:15 14:15 WBC 1.5 L (3.8-10.6) k/uL RBC 3.52 L (4.30-5.90) m/uL Hgb 10.8 L (13.0-17.5) gm/dL Hct 30.9 L (39.0-53.0) % MCV 87.8 (80.0-100.0) fL MCH 30.7 (25.0-35.0) pg MCHC 35.0 (31.0-37.0) g/dL RDW 13.7 (11.5-15.5) % Plt Count 59 L (150-450) k/uL Neutrophils % Not Reportable Neutrophils % (Manual) 68 % Band Neuts % (Manual) 1 % Lymphocytes % Not Reportable Lymphocytes % (Manual) 20 % Monocytes % Not Reportable Monocytes % (Manual) 11 % Eosinophils % Not Reportable Basophils % Not Reportable Neutrophils # Not Reportable Neutrophils # (Manual) 1.00 L (1.3-7.7) k/uL Lymphocytes # Not Reportable Lymphocytes # (Manual) 0.30 L (1.0-4.8) k/uL Monocytes # Not Reportable Monocytes # (Manual) 0.17 (0-1.0) k/uL Eosinophils # Not Reportable Basophils # Not Reportable Nucleated RBCs 0 (0-0) /100 WBC Manual Slide Review Performed RBC Morphology Normal PT 10.4 (9.0-12.0) sec INR 1.0 (<1.2) Sodium (137-145) mmol/L Potassium (3.5-5.1) mmol/L Chloride (98-107) mmol/L Carbon Dioxide (22-30) mmol/L Anion Gap mmol/L BUN (9-20) mg/dL Creatinine (0.66-1.25) mg/dL Est GFR (CKD-EPI)AfAm (>60 ml/min/1.73 sqM) Est GFR (CKD-EPI)NonAf (>60 ml/min/1.73 sqM) Glucose (74-99) mg/dL Plasma Lactic Acid Yury (0.7-2.0) mmol/L Calcium (8.4-10.2) mg/dL Magnesium (1.6-2.3) mg/dL Total Bilirubin (0.2-1.3) mg/dL AST (17-59) U/L ALT (4-49) U/L Alkaline Phosphatase (38-126) U/L Troponin I (0.000-0.034) ng/mL Total Protein (6.3-8.2) g/dL Albumin (3.5-5.0) g/dL Urine Color Yellow Urine Appearance Clear (Clear) Urine pH 7.0 (5.0-8.0) Ur Specific Ewell 1.014 (1.001-1.035) Urine Protein Trace H (Negative) Urine Glucose (UA) Negative (Negative) Urine Ketones 3+ H (Negative) Urine Blood Negative (Negative) Urine Nitrite Negative (Negative) Urine Bilirubin Negative (Negative) Urine Urobilinogen <2.0 (<2.0) mg/dL Ur Leukocyte Esterase Negative (Negative) 08/24/20 08/24/20 08/24/20 Range/Units 14:15 14:15 14:15 WBC (3.8-10.6) k/uL RBC (4.30-5.90) m/uL Hgb (13.0-17.5) gm/dL Hct (39.0-53.0) % MCV (80.0-100.0) fL MCH (25.0-35.0) pg MCHC (31.0-37.0) g/dL RDW (11.5-15.5) % Plt Count (150-450) k/uL Neutrophils % Neutrophils % (Manual) % Band Neuts % (Manual) % Lymphocytes % Lymphocytes % (Manual) % Monocytes % Monocytes % (Manual) % Eosinophils % Basophils % Neutrophils # Neutrophils # (Manual) (1.3-7.7) k/uL Lymphocytes # Lymphocytes # (Manual) (1.0-4.8) k/uL Monocytes # Monocytes # (Manual) (0-1.0) k/uL Eosinophils # Basophils # Nucleated RBCs (0-0) /100 WBC Manual Slide Review RBC Morphology PT (9.0-12.0) sec INR (<1.2) Sodium 135 L (137-145) mmol/L Potassium 2.6 L* (3.5-5.1) mmol/L Chloride 100 (98-107) mmol/L Carbon Dioxide 27 (22-30) mmol/L Anion Gap 8 mmol/L BUN 9 (9-20) mg/dL Creatinine 0.55 L (0.66-1.25) mg/dL Est GFR (CKD-EPI)AfAm >90 (>60 ml/min/1.73 sqM) Est GFR (CKD-EPI)NonAf >90 (>60 ml/min/1.73 sqM) Glucose 109 H (74-99) mg/dL Plasma Lactic Acid Yury 0.7 (0.7-2.0) mmol/L Calcium 8.9 (8.4-10.2) mg/dL Magnesium (1.6-2.3) mg/dL Total Bilirubin 0.7 (0.2-1.3) mg/dL AST 23 (17-59) U/L ALT 15 (4-49) U/L Alkaline Phosphatase 66 (38-126) U/L Troponin I <0.012 (0.000-0.034) ng/mL Total Protein 5.7 L (6.3-8.2) g/dL Albumin 3.5 (3.5-5.0) g/dL Urine Color Urine Appearance (Clear) Urine pH (5.0-8.0) Ur Specific Ewell (1.001-1.035) Urine Protein (Negative) Urine Glucose (UA) (Negative) Urine Ketones (Negative) Urine Blood (Negative) Urine Nitrite (Negative) Urine Bilirubin (Negative) Urine Urobilinogen (<2.0) mg/dL Ur Leukocyte Esterase (Negative) 08/24/20 08/24/20 08/25/20 Range/Units 14:15 19:41 08:16 WBC (3.8-10.6) k/uL RBC (4.30-5.90) m/uL Hgb (13.0-17.5) gm/dL Hct (39.0-53.0) % MCV (80.0-100.0) fL MCH (25.0-35.0) pg MCHC (31.0-37.0) g/dL RDW (11.5-15.5) % Plt Count (150-450) k/uL Neutrophils % Neutrophils % (Manual) % Band Neuts % (Manual) % Lymphocytes % Lymphocytes % (Manual) % Monocytes % Monocytes % (Manual) % Eosinophils % Basophils % Neutrophils # Neutrophils # (Manual) (1.3-7.7) k/uL Lymphocytes # Lymphocytes # (Manual) (1.0-4.8) k/uL Monocytes # Monocytes # (Manual) (0-1.0) k/uL Eosinophils # Basophils # Nucleated RBCs (0-0) /100 WBC Manual Slide Review RBC Morphology PT (9.0-12.0) sec INR (<1.2) Sodium 135 L 136 L (137-145) mmol/L Potassium 2.9 L 3.2 L (3.5-5.1) mmol/L Chloride 103 105 (98-107) mmol/L Carbon Dioxide 26 27 (22-30) mmol/L Anion Gap 6 4 mmol/L BUN 8 L 8 L (9-20) mg/dL Creatinine 0.53 L 0.54 L (0.66-1.25) mg/dL Est GFR (CKD-EPI)AfAm >90 >90 (>60 ml/min/1.73 sqM) Est GFR (CKD-EPI)NonAf >90 >90 (>60 ml/min/1.73 sqM) Glucose 100 H 115 H (74-99) mg/dL Plasma Lactic Acid Yury (0.7-2.0) mmol/L Calcium 8.4 8.4 (8.4-10.2) mg/dL Magnesium 1.5 L 1.4 L 1.8 (1.6-2.3) mg/dL Total Bilirubin 0.7 (0.2-1.3) mg/dL AST 22 (17-59) U/L ALT 14 (4-49) U/L Alkaline Phosphatase 56 (38-126) U/L Troponin I (0.000-0.034) ng/mL Total Protein 5.3 L (6.3-8.2) g/dL Albumin 3.2 L (3.5-5.0) g/dL Urine Color Urine Appearance (Clear) Urine pH (5.0-8.0) Ur Specific Ewell (1.001-1.035) Urine Protein (Negative) Urine Glucose (UA) (Negative) Urine Ketones (Negative) Urine Blood (Negative) Urine Nitrite (Negative) Urine Bilirubin (Negative) Urine Urobilinogen (<2.0) mg/dL Ur Leukocyte Esterase (Negative) 08/25/20 Range/Units 08:16 WBC 1.3 L* (3.8-10.6) k/uL RBC 3.25 L (4.30-5.90) m/uL Hgb 10.0 L (13.0-17.5) gm/dL Hct 28.8 L (39.0-53.0) % MCV 88.6 (80.0-100.0) fL MCH 30.8 (25.0-35.0) pg MCHC 34.8 (31.0-37.0) g/dL RDW 13.1 (11.5-15.5) % Plt Count 57 L (150-450) k/uL Neutrophils % Neutrophils % (Manual) 78 % Band Neuts % (Manual) 1 % Lymphocytes % Lymphocytes % (Manual) 6 % Monocytes % Monocytes % (Manual) 15 % Eosinophils % Basophils % Neutrophils # Neutrophils # (Manual) 1.00 L (1.3-7.7) k/uL Lymphocytes # Lymphocytes # (Manual) 0.08 L (1.0-4.8) k/uL Monocytes # Monocytes # (Manual) 0.20 (0-1.0) k/uL Eosinophils # Basophils # Nucleated RBCs 0 (0-0) /100 WBC Manual Slide Review Performed RBC Morphology Normal PT (9.0-12.0) sec INR (<1.2) Sodium (137-145) mmol/L Potassium (3.5-5.1) mmol/L Chloride (98-107) mmol/L Carbon Dioxide (22-30) mmol/L Anion Gap mmol/L BUN (9-20) mg/dL Creatinine (0.66-1.25) mg/dL Est GFR (CKD-EPI)AfAm (>60 ml/min/1.73 sqM) Est GFR (CKD-EPI)NonAf (>60 ml/min/1.73 sqM) Glucose (74-99) mg/dL Plasma Lactic Acid Yury (0.7-2.0) mmol/L Calcium (8.4-10.2) mg/dL Magnesium (1.6-2.3) mg/dL Total Bilirubin (0.2-1.3) mg/dL AST (17-59) U/L ALT (4-49) U/L Alkaline Phosphatase (38-126) U/L Troponin I (0.000-0.034) ng/mL Total Protein (6.3-8.2) g/dL Albumin (3.5-5.0) g/dL Urine Color Urine Appearance (Clear) Urine pH (5.0-8.0) Ur Specific Ewell (1.001-1.035) Urine Protein (Negative) Urine Glucose (UA) (Negative) Urine Ketones (Negative) Urine Blood (Negative) Urine Nitrite (Negative) Urine Bilirubin (Negative) Urine Urobilinogen (<2.0) mg/dL Ur Leukocyte Esterase (Negative) Disposition Is patient prescribed a controlled substance at d/c from ED?: No Time of Disposition: 19:05 Decision to Admit Reason: Admit from EC Decision Date: 08/24/20 Decision Time: 17:00 <Salina Lang - Last Filed: 08/24/20 18:54> <Reba Roy - Last Filed: 08/25/20 14:33> Clinical Impression: Weakness, Lightheaded, Dehydration Disposition: ADMITTED IP TO THIS HOSP
[2020-08-24 15:08] LABS: HCT 30.9 % (39.0-53.0); HGB 10.8 gm/dL (13.0-17.5); MCH 30.7 pg (25.0-35.0); MCV 87.8 fL (80.0-100.0); Mean Platelet Volume 8.5; RBC 3.52 m/uL (4.30-5.90); RDW 13.7 % (11.5-15.5); WBC 1.5 k/uL (3.8-10.6)
[2020-08-24 15:10] LABS: ALT 15 U/L (4-49); AST 23 U/L (17-59); African American GFR (CKD) >90 (>60 ml/min/1.73 sqM); Albumin 3.5 g/dL (3.5-5.0); Alkaline Phosphatase 66 U/L (38-126); Anion Gap 8 mmol/L; Blood Urea Nitrogen 9 mg/dL (9-20); Calcium 8.9 mg/dL (8.4-10.2); Carbon Dioxide 27 mmol/L (22-30); Chloride 100 mmol/L (98-107); Glucose 109 mg/dL (74-99); Non-African American GFR(CKD) >90 (>60 ml/min/1.73 sqM); Sodium 135 mmol/L (137-145); Total Bilirubin 0.7 mg/dL (0.2-1.3); Total Protein 5.7 g/dL (6.3-8.2)
--- NOTE | 2020-08-24 15:15 | XR ---
EXAMINATION TYPE: XR chest 2V DATE OF EXAM: 08/24/2020 COMPARISON: January 28, 2020 HISTORY: Weakness TECHNIQUE: 2 views FINDINGS: Heart is normal. Lungs are clear of infiltrate. There is no heart failure. There is right c entral venous catheter with tip in the superior vena cava. There are chest leads. There is 8mm nodula r density in the left upper lobe. Bony thorax is intact. IMPRESSION: Left upper lobe nodule appears new compared to old exam. Normal heart.
[2020-08-24 15:21] LABS: Prothrombin Time 10.4 sec (9.0-12.0)
[2020-08-24 15:41] LABS: Potassium 2.6 mmol/L (3.5-5.1)
[2020-08-24] MEDS ORDERED: HYDROmorphone 1 MG/ML 1 ML SYRINGE IVP STA ×2 (15:48→16:44)
[2020-08-24 15:54] LABS: Band Neutrophils % 1 %; Monocytes # (M) 0.17 k/uL (0-1.0); Neutrophils % (M) 68 %; Nucleated Red Blood Cells 0 /100 WBC (0-0); Total Cells Counted 100
[2020-08-24 15:55] LABS: Platelet Count 59 k/uL (150-450)
[2020-08-24] MEDS ORDERED: POTASSIUM CHLORIDE ER 20 MEQ TAB.ER PO STA (16:04)
[2020-08-24] MEDS: POTASSIUM CHLORIDE 10 MEQ in WATER FOR INJECTION 1 100ML.BAG IVPB SCH ×2 (16:27→17:45)
[2020-08-24] MEDS ORDERED: POTASSIUM BICARBONATE/CIT AC 20 MEQ TABLET.EFF PO ONE ×2 (16:29→19:30)
[2020-08-24] MEDS ORDERED: MAGNESIUM OXIDE 400 MG TAB PO STA (17:00)
[2020-08-24] MEDS ORDERED: NALOXONE 0.4 MG/ML 1 ML VIAL IV PRN (17:01)
[2020-08-24] MEDS: SODIUM CHLORIDE 0.9% 1,000 ML IV SCH (17:18)
[2020-08-24] MEDS ORDERED: ALBUTEROL NEBULIZED 2.5 MG/3 ML INHALATION PRN (18:25)
[2020-08-24] MEDS ORDERED: PROCHLORPERAZINE 10 MG TAB PO PRN (18:25)
[2020-08-24] MEDS ORDERED: POTASSIUM CHLORIDE 10 MEQ in WATER FOR INJECTION 1 100ML.BAG IVPB STA (19:14)
[2020-08-24] MEDS ORDERED: Magnesium Replacement Protocol 1 EACH MISC MISCELLANE PRN (19:23)
[2020-08-24] MEDS ORDERED: Potassium Replacement Protocol 1 EACH MISC MISCELLANE PRN (19:23)
[2020-08-24] MEDS ORDERED: 0.9% NACL WITH KCL 40 MEQ/L 1,000 ML IV ONE (19:30)
[2020-08-24] MEDS: HYDROmorphone 1 MG/ML 1 ML SYRINGE IVP PRN ×2 (19:38→23:28)
[2020-08-24] MEDS: ONDANSETRON 4 MG TAB PO PRN (19:39)
[2020-08-24] MEDS: SERTRALINE 100 MG TAB PO SCH (19:57)
[2020-08-24] MEDS: OLANZapine 5 MG TAB PO SCH (19:57)
[2020-08-24] MEDS ORDERED: HYDROcodone/APAP 7.5-325MG 1 EACH TAB PO PRN (19:58)
[2020-08-24] MEDS ORDERED: TEMAZEPAM 15 MG CAP PO PRN (19:59)
[2020-08-24] MEDS: LORazepam 0.5 MG TAB PO PRN (20:02)
[2020-08-24 20:17] LABS: ALT 14 U/L (4-49); AST 22 U/L (17-59); African American GFR (CKD) >90 (>60 ml/min/1.73 sqM); Albumin 3.2 g/dL (3.5-5.0); Alkaline Phosphatase 56 U/L (38-126); Anion Gap 6 mmol/L; Blood Urea Nitrogen 8 mg/dL (9-20); Calcium 8.4 mg/dL (8.4-10.2); Carbon Dioxide 26 mmol/L (22-30); Chloride 103 mmol/L (98-107); Glucose 100 mg/dL (74-99); Magnesium 1.4 mg/dL (1.6-2.3); Non-African American GFR(CKD) >90 (>60 ml/min/1.73 sqM); Potassium 2.9 mmol/L (3.5-5.1); Sodium 135 mmol/L (137-145); Total Bilirubin 0.7 mg/dL (0.2-1.3); Total Protein 5.3 g/dL (6.3-8.2)
[2020-08-24] MEDS ORDERED: POTASSIUM CHLORIDE 10 MEQ in WATER FOR INJECTION 1 100ML.BAG IVPB ONE (20:30)
[2020-08-24] MEDS ORDERED: POTASSIUM CHLORIDE ER 20 MEQ TAB.ER PO ONE (20:30)
[2020-08-24] MEDS: MAGNESIUM SULFATE-D5W PMX 1 GM in DEXTROSE/WATER 1 100ML.BAG IVPB SCH (21:14)
[2020-08-24] MEDS: CEFEPIME 2 GM in SODIUM CHLORIDE 0.9% 100 ML IVPB SCH (22:25)
[2020-08-25] MEDS: SODIUM CHLORIDE 0.9% 1,000 ML IV SCH ×2 (00:18→21:29)
[2020-08-25] MEDS: MAGNESIUM SULFATE-D5W PMX 1 GM in DEXTROSE/WATER 1 100ML.BAG IVPB SCH ×3 (00:36→12:14)
--- NOTE | 2020-08-25 01:06 | HP ---
HISTORY AND PHYSICAL I am covering for Dr. Ventura. DATE OF SERVICE: 08/24/2020 CHIEF COMPLAINTS: Weakness and nausea and vomiting. HISTORY OF PRESENT ILLNESS: This 49-year-old gentleman with a past medical history of multiple medical problems including asthma, history of chest pain, GERD, hypertension, pneumonia, history of sleep apnea, history hemorrhoidectomy, history of anxiety being followed by Dr. Ventura in the outpatient setting with history of stage III esophageal cancer. The patient is being treated in [facility] for chemotherapy and radiation. The patient is now complaining of some nausea and generalized weakness, tiredness, lightheaded sensation. The patient was feeling this for the last 2 days and feeling dizzy when standing up, the room is not spinning and because of this, the patient came to [facility] and was admitted for further evaluation and treatment. Patient has significant hypokalemia, potassium 2.6, and hypomagnesemia. [facility] was contacted and apparently recommended not to transfer the patient at this point. As mentioned earlier on admission, white count is 1.5, hemoglobin 10.8, platelets are Sodium 135, potassium 2.6, and magnesium is 1.5. UA shows 3 ketones. There is no history of any fever or rigors. No history of any headache, loss of consciousness or seizures. The patient was orthostatically positive with 135/75 on lying and 114/70 on standing. PAST MEDICAL HISTORY: History of stage III esophageal cancer, history of asthma, chest pain, GERD, hypertension, pneumonia, sleep apnea. MEDICATIONS: Home medications are: 1. Zofran. 2. Ventolin. 3. Compazine. 4. Zyprexa. 5. Ativan. 6. Zoloft. 7. Hydrochlorothiazide. 8. Hydrocodone. ALLERGIES: None. FAMILY HISTORY: History of cancer, metastatic cancer. SOCIAL HISTORY: History of alcohol. History of nicotine dependence. REVIEW OF SYSTEMS: ENT: No diminished hearing or diminished vision. CARDIOVASCULAR SYSTEM: No angina. RESPIRATORY SYSTEM: As mentioned earlier. GI: As mentioned earlier, : No dysuria. NERVOUS SYSTEM: As mentioned earlier. ALLERGIES/IMMUNOLOGY: No asthma or hayfever. MUSCULOSKELETAL: As mentioned earlier. HEMATOLOGY/ONCOLOGY: As mentioned earlier. ENDOCRINE: No history of diabetes or hypothyroidism. CONSTITUTIONAL: As mentioned earlier. DERMATOLOGY: Negative. RHEUMATOLOGY: Negative. PSYCHIATRY: As mentioned earlier. PHYSICAL EXAMINATION: The patient is alert and oriented x3. Pulse is 101, blood pressure as mentioned, respirations 18, temperature 98.2, pulse ox 99% on room air. HEENT: Conjunctivae normal. Oral mucosa dry. NECK: No jugular venous distention. No carotid bruit. No lymph node enlargement. CARDIOVASCULAR: S1, S2 muffled. RESPIRATORY: Breath sound diminished at the bases. No rhonchi. ABDOMEN: Soft, nontender. No mass palpable. LEGS: No edema, no swelling. NERVOUS SYSTEM: Higher functions as mentioned earlier. Moves all 4 limbs. No focal motor or sensory deficits. LYMPHATICS: No lymphadenopathy of the neck, axillae or groin. SKIN: No ulcer, rash or bleeding. JOINTS: No active deforming arthropathy. LABS: WBC 1.5, hemoglobin 10.8, platelets 59. Sodium 135, potassium 2.6. ASSESSMENT: 1. Severe dehydration with electrolyte abnormality. 2. Severe hypokalemia. 3. Hypomagnesemia. 4. Hyponatremia. 5. Stage III esophageal cancer on radiation and chemotherapy. 6. Severe pancytopenia with anemia, thrombocytopenia and leukopenia. 7. History of asthma. 8. Gastroesophageal reflux disease. 9. Hypertension. 10.History of pneumonia. 11.History of sleep apnea. 12.History of hemorrhoidectomy. 13.History of anxiety. 14.Continued ongoing nicotine dependence. 15.FULL CODE. RECOMMENDATIONS AND DISCUSSION: This 49-year-old gentleman who presented with multiple complex medical issues, we will monitor the patient closely. We will replace potassium and magnesium at this time. The patient was given some potassium in the ER. I would recommend p.o. and IV to be repeated. Please see orders for further details. Otherwise, repeat potassium in the morning. Add potassium to the IV fluids. Also recommend empiric antibiotics. Obtain the cultures, rule out the possibility of neutropenic sepsis. Otherwise, the home medications will be continued, symptomatic treatment also provided. Prognosis guarded and discussed with the patient and family and further recommendations to follow. Dr. Ventura will follow in the morning. MMODL / IJN: [id number] / MTDD
[2020-08-25] MEDS: CEFEPIME 2 GM in SODIUM CHLORIDE 0.9% 100 ML IVPB SCH ×3 (04:40→21:55)
[2020-08-25] MEDS: HYDROmorphone 1 MG/ML 1 ML SYRINGE IVP PRN ×5 (04:45→17:35)
[2020-08-25] MEDS ORDERED: PANTOPRAZOLE 40 MG TABLET PO SCH (07:30)
[2020-08-25] MEDS: ONDANSETRON 4 MG TAB PO PRN (08:11)
[2020-08-25 09:04] LABS: HCT 28.8 % (39.0-53.0); MCH 30.8 pg (25.0-35.0); MCHC 34.8 g/dL (31.0-37.0); MCV 88.6 fL (80.0-100.0); Mean Platelet Volume 7.8; RBC 3.25 m/uL (4.30-5.90); RDW 13.1 % (11.5-15.5)
[2020-08-25 09:05] LABS: African American GFR (CKD) >90 (>60 ml/min/1.73 sqM); Anion Gap 4 mmol/L; Blood Urea Nitrogen 8 mg/dL (9-20); Calcium 8.4 mg/dL (8.4-10.2); Carbon Dioxide 27 mmol/L (22-30); Chloride 105 mmol/L (98-107); Glucose 115 mg/dL (74-99); Magnesium 1.8 mg/dL (1.6-2.3); Non-African American GFR(CKD) >90 (>60 ml/min/1.73 sqM); Potassium 3.2 mmol/L (3.5-5.1); Sodium 136 mmol/L (137-145)
[2020-08-25 09:13] LABS: Platelet Count 57 k/uL (150-450); WBC 1.3 k/uL (3.8-10.6)
[2020-08-25] MEDS ORDERED: Potassium Replacement Protocol 1 EACH MISC MISCELLANE PRN (09:29)
[2020-08-25] MEDS ORDERED: Magnesium Replacement Protocol 1 EACH MISC MISCELLANE PRN (09:29)
[2020-08-25] MEDS: POTASSIUM CHLORIDE 20 MEQ in WATER FOR INJECTION 1 100ML.BAG IVPB SCH ×2 (10:05→12:12)
[2020-08-25 11:18] LABS: Band Neutrophils % 1 %; Lymphocytes # (M) 0.08 k/uL (1.0-4.8); Neutrophils % (M) 78 %; Nucleated Red Blood Cells 0 /100 WBC (0-0); Total Cells Counted 100
[2020-08-25 11:41] VITALS: BMI 22.4
[2020-08-25] MEDS: PROMETHAZINE INJ 6.25 MG in SODIUM CHLORIDE 0.9% 50 ML IVPB SCH ×2 (12:49→18:57)
[2020-08-25] MEDS: HYDROmorphone 0.5 MG/0.5 ML SYRINGE IVP PRN ×2 (13:19→21:54)
[2020-08-25] MEDS: LORazepam 0.5 MG TAB PO PRN (14:50)
[2020-08-25] MEDS: NICOTINE 14MG/24HR PATCH TRANSDERM SCH (15:15)
[2020-08-25] MEDS: ALPRAZolam 0.25 MG TAB PO PRN (17:35)
[2020-08-25] MEDS: SERTRALINE 100 MG TAB PO SCH (21:30)
[2020-08-25] MEDS: PANTOPRAZOLE 40 MG/10 ML VIAL IVP SCH (21:30)
[2020-08-25] MEDS: OLANZapine 5 MG TAB PO SCH (21:31)
--- NOTE | 2020-08-25 23:05 | PN ---
PROGRESS NOTE This patient is a 49-year-old white male with esophageal cancer, stage III, nausea and vomiting for 5 weeks, 65-pound weight loss. He is scheduled to get a Dobbhoff tube tomorrow and feeding will be have to be maintained through that until surgery is done at [facility]. He has pancytopenia. He has had chemo 4-5 attempts. He still lost weight despite Compazine, Zofran and Ativan. Continues on current blood pressure medicines and Zyprexa for mood disorder. CARDIOVASCULAR: S1, S2. He is thin, cachectic. LUNGS: Clear. ABDOMEN: Soft. EXTREMITIES: No edema. ASSESSMENT: 1. Severe dehydration. 2. Electrolyte abnormalities. 3. Severe hypokalemia. 4. Hypomagnesemia. 5. Hyponatremia. 6. Stage III esophageal cancer. 7. Severe pancytopenia due to chemo. Continue to rehydrate. Replace electrolytes. Dobbhoff tube will be done. Continue on current home medications. Get GI consultation for Dobbhoff feeding tube tomorrow. Replace electrolytes. MMODL / IJN: [id number] /
[2020-08-26] MEDS: PROMETHAZINE INJ 6.25 MG in SODIUM CHLORIDE 0.9% 50 ML IVPB SCH ×4 (02:03→23:02)
[2020-08-26] MEDS: SODIUM CHLORIDE 0.9% 1,000 ML IV SCH ×3 (03:46→19:38)
[2020-08-26] MEDS: CEFEPIME 2 GM in SODIUM CHLORIDE 0.9% 100 ML IVPB SCH ×3 (04:29→23:30)
[2020-08-26] MEDS: PANTOPRAZOLE 40 MG/10 ML VIAL IVP SCH ×2 (08:45→21:12)
[2020-08-26] MEDS: HYDROmorphone 1 MG/ML 1 ML SYRINGE IVP PRN ×4 (08:45→21:10)
[2020-08-26] MEDS: NICOTINE 14MG/24HR PATCH TRANSDERM SCH (08:45)
--- NOTE | 2020-08-26 09:35 | CONS ---
CONSULTATION REQUESTING PHYSICIAN: Dr. Kayode Ventura. REASON FOR CONSULTATION: Dobbhoff tube placement. HISTORY OF PRESENT ILLNESS: The patient is a 49-year-old pleasant white male with history of esophageal cancer diagnosed in May of this year at which time he had an upper endoscopy done by Dr. Canchola that showed distal esophageal stricture. Biopsies from the distal esophagus showed adenocarcinoma . 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 He is presently being followed at [facility]. He was started on chemo radiation therapy with the plan of surgery in the future. The patient has been having nausea, vomiting, weakness, dysphagia, and hence he came into the emergency room and subsequently admitted for further management. We are consulted for Dobbhoff tube placement as recommended by his oncologist at [facility]. The patient has been on liquids, tolerating well. He has severe dysphagia to solids. He lost 15 pounds since the onset of these symptoms. He denies any abdominal pain. No odynophagia. PAST MEDICAL HISTORY: Esophageal cancer, as well as history of GERD, asthma, hypertension, sleep apnea. MEDICATIONS: At home, Zofran, Ventolin, Compazine, Zyprexa, Ativan, Zoloft, hydrochlorothiazide, and hydrocodone. ALLERGIES: None. SOCIAL HISTORY: History of alcohol use and smoking in the past. FAMILY HISTORY: Mother healthy, father had some kind of metastatic cancer of unknown type. REVIEW OF SYSTEMS: CARDIOPULMONARY: No chest pain or shortness of breath. No dysuria hematuria. Musculoskeletal; generalized weakness. Fatigue. Neurology unremarkable. Psychiatric unremarkable. ENT: Vision unremarkable. Oncology as mentioned above. Hematology mild anemia. CONSTITUTIONAL: Weight loss of 15 pounds. No fever, chills, night sweats. PHYSICAL EXAMINATION: He appears comfortable. No apparent distress vital signs stable blood pressure is 150/73, pulse rate 86, temperature 97.6 HEENT examination unremarkable sclerae anicteric. Oral cavity no lesions. Neck no JVD enlargement. Chest was clear to auscultation. HEART: Regular rate and rhythm. ABDOMEN: Soft bowel sounds are positive no organomegaly. Extremities no pedal edema. Skin no rashes. NEUROLOGIC: Alert and oriented x3. No focal deficits. LABS: From today: WBC 1.5, hemoglobin 10.8, platelets 59. Basic metabolic panel is within normal limits. BUN 9, creatinine 0.55. Potassium was 2.6 today. Potassium is 3.5, WBC 1.3, hemoglobin 10, platelets 57,000. IMPRESSION: 1. Esophageal adenocarcinoma diagnosed in May of this year. Stage III, presently undergoing neoadjuvant chemoradiation and follows with oncologist at [facility]. 2. Severe dysphagia to solids secondary to tight distal esophageal stricture. The patient had an EUS done in May of this year and as per the family, the endoscope could not be advanced into the esophagus. He was recommended by his oncologist to have a Dobbhoff tube placement for maintaining his nutrition and not NG tube or G- tube placement at this time because of plans to do surgery after neoadjuvant chemoradiation. 3. Pancytopenia secondary to recent chemotherapy. 4. Progressive weight loss. RECOMMENDATIONS: 1. Continue with symptomatic and supportive care. 2. Broad-spectrum antibiotics. 3. Antiemetics as needed. 4. Continue with a clear liquid diet today. 5. Will plan on Dobbhoff tube placement tomorrow. I discussed with him about the placement itself, he is agreeable to it. Thank you for this consultation. MMODL / IJN: [id number] /
[2020-08-26] MEDS: ALPRAZolam 0.25 MG TAB PO PRN (12:46)
--- NOTE | 2020-08-26 14:04 | XR ---
KUB HISTORY: Dobbhoff tube placement Single frontal view of the lower chest and upper abdomen Dobbhoff tube is coiled within the stomach and extends off the inferior extent of the x-ray, tip is n ot included on exam. There are overlying leads, lung bases are clear. No evident pneumoperitoneum. impression: Dobbhoff tube as described, tip not included on the exam, technologist states that referr ing clinician did not request repeat exam.
[2020-08-26 14:21] LABS: ALT 15 U/L (4-49); AST 25 U/L (17-59); African American GFR (CKD) >90 (>60 ml/min/1.73 sqM); Albumin 3.1 g/dL (3.5-5.0); Alkaline Phosphatase 64 U/L (38-126); Anion Gap 7 mmol/L; Blood Urea Nitrogen 7 mg/dL (9-20); Calcium 8.6 mg/dL (8.4-10.2); Carbon Dioxide 24 mmol/L (22-30); Chloride 108 mmol/L (98-107); Glucose 92 mg/dL (74-99); Magnesium 1.7 mg/dL (1.6-2.3); Non-African American GFR(CKD) >90 (>60 ml/min/1.73 sqM); Potassium 3.2 mmol/L (3.5-5.1); Sodium 139 mmol/L (137-145); Total Bilirubin 0.5 mg/dL (0.2-1.3); Total Protein 5.3 g/dL (6.3-8.2)
[2020-08-26 14:43] LABS: HCT 29.6 % (39.0-53.0); MCH 30.3 pg (25.0-35.0); MCHC 33.8 g/dL (31.0-37.0); MCV 89.4 fL (80.0-100.0); Mean Platelet Volume 7.5; RBC 3.31 m/uL (4.30-5.90); RDW 13.8 % (11.5-15.5); WBC 1.6 k/uL (3.8-10.6)
[2020-08-26 15:22] LABS: Band Neutrophils % 9 %; Neutrophils % (M) 65 %; Nucleated Red Blood Cells 0 /100 WBC (0-0); Total Cells Counted 100
[2020-08-26 15:23] LABS: Poikilocytosis (M) Present; Toxic Granulation Present
[2020-08-26 15:32] LABS: Platelet Count 74 k/uL (150-450)
[2020-08-26 15:33] LABS: Eosinophils % (A) 2 %; Lymphocytes % (A) 19 %; Monocytes % (A) 5 %; Neutrophils % (A) 65 %
[2020-08-26 16:52] VITALS: PULSE 89
[2020-08-26] MEDS: POTASSIUM CHLORIDE 10 MEQ in WATER FOR INJECTION 1 100ML.BAG IVPB SCH ×4 (18:16→21:58)
[2020-08-26] MEDS: OLANZapine 5 MG TAB PO SCH (21:12)
[2020-08-26] MEDS: SERTRALINE 100 MG TAB PO SCH (21:12)
[2020-08-26] MEDS: clonazePAM 0.5 MG TAB PO SCH (21:12)
--- NOTE | 2020-08-26 21:44 | PN ---
PROGRESS NOTE DATE OF DICTATION: August 26, 2020 The patient is a 49-year-old pleasant white male with recently diagnosed esophageal adenocarcinoma stage III who is presently undergoing chemoradiation therapy. He was admitted to hospital because of weakness, fatigue and not feeling well and was noted to have mild pancytopenia. He has history of esophageal stricture and has been having progressive dysphagia to solids with weight loss. He was seen on consultation for Dobbhoff tube placement. PHYSICAL EXAMINATION: Appears comfortable, no apparent distress. VITAL SIGNS: Stable. Blood pressure is 112/68. Pulse rate 82 and afebrile. HEENT examination unremarkable. Sclerae anicteric. Oral cavity no lesions. NECK: No JVD or lymph node enlargement. Chest was clear to auscultation. HEART: Regular rate and rhythm. ABDOMEN: Soft. Bowel sounds are positive. No organomegaly. EXTREMITIES: No pedal edema. NEUROLOGIC: Alert and oriented x3. No focal deficits. LABS: WBC 1.6, hemoglobin 10, platelets 74. Basic metabolic panel is within normal limits. IMPRESSION: 1. History of esophageal stricture secondary to distal esophageal adenocarcinoma, presently undergoing neoadjuvant chemoradiation therapy. He had a component of radiation induced esophagitis. 2. Pancytopenia, improving. 3. Dysphagia secondary to esophageal stricture. RECOMMENDATIONS: 1. After having a lengthy discussion with the patient regarding the Dobbhoff tube placement, he was agreeable to it. The Dobbhoff tube was placed from the external nostril and was gently advanced into the esophagus without any difficulty and was gently advanced into the stomach. Following this, abdominal x-ray was obtained. The tip of the Dobbhoff tube appeared to be around the greater curvature of the stomach. At this time, the stylet was removed without any difficulty and the tube was taped onto the nose without any difficulty. Dietary was consulted who recommended starting the tube feeds at 10 mL an hour. The patient tolerated the procedure well. 2. Continue with Protonix for now. 3. We will follow with you closely. Thank you for this consultation. MMODL / IJN: [id number] /
[2020-08-27] MEDS: PROMETHAZINE INJ 6.25 MG in SODIUM CHLORIDE 0.9% 50 ML IVPB SCH ×3 (03:29→09:48)
[2020-08-27] MEDS: CEFEPIME 2 GM in SODIUM CHLORIDE 0.9% 100 ML IVPB SCH (05:40)
[2020-08-27] MEDS: SODIUM CHLORIDE 0.9% 1,000 ML IV SCH (05:44)
[2020-08-27] MEDS: ALPRAZolam 0.25 MG TAB PO PRN (05:48)
[2020-08-27] MEDS: HYDROmorphone 1 MG/ML 1 ML SYRINGE IVP PRN ×2 (05:49→09:54)
--- NOTE | 2020-08-27 07:14 | PN ---
PROGRESS NOTE 49-year-old with esophageal cancer, stage III, presently undergoing chemoradiation therapy. He is admitted to the hospital because of weakness, fatigue, not feeling well. He has mild pancytopenia, which is improved since yesterday. Esophageal stricture having progressive dysphagia to solids. Weight loss 65 pounds over the past few months. Dobbhoff tube placements been in place. He is on 10 mL an hour. Try to wean up by 10 mL per 12 hours. Home on nutrition possibly tomorrow. The patient is feeling a bit better today, less nausea, less fatigued. NEUROLOGIC: Alert and oriented x3. CARDIOVASCULAR S1, S2. ABDOMEN is soft, nontender. EXTREMITIES: No cyanosis, clubbing or edema. HEENT: Normocephalic, atraumatic. White count is 1.6, platelets 74, hemoglobin is 10. Metabolic panel normal. IMPRESSION: 1. History of esophageal stricture secondary to distal esophageal adenocarcinoma, undergoing chemoradiation, radiation induced esophagitis, pancytopenia, continue Dobbhoff tube feedings when he goes home. Follow up with Oncology down in the [facility] at of . 2. Dysphagia secondary to esophageal stricture. Dobbhoff tube has been placed into the greater curvature of the stomach. Continue with Protonix. Advanced nutrition. 3. Nausea, vomiting. Clear liquid diet as tolerated. 4. Prognosis guarded. 5. Follow up treatment at [place] tomorrow on discharge. MMODL / IJN: [id number] /
[2020-08-27 07:40] LABS: ALT 14 U/L (4-49); AST 24 U/L (17-59); African American GFR (CKD) >90 (>60 ml/min/1.73 sqM); Albumin 2.9 g/dL (3.5-5.0); Alkaline Phosphatase 52 U/L (38-126); Anion Gap 8 mmol/L; Blood Urea Nitrogen 7 mg/dL (9-20); Carbon Dioxide 25 mmol/L (22-30); Chloride 106 mmol/L (98-107); Glucose 109 mg/dL (74-99); Non-African American GFR(CKD) >90 (>60 ml/min/1.73 sqM); Sodium 139 mmol/L (137-145); Total Bilirubin 0.5 mg/dL (0.2-1.3); Total Protein 5.2 g/dL (6.3-8.2)
[2020-08-27 07:57] LABS: Calcium 2.3 mg/dL (8.4-10.2); Potassium 8.1 mmol/L (3.5-5.1)
[2020-08-27 08:02] LABS: HCT 26.5 % (39.0-53.0); MCH 29.9 pg (25.0-35.0); MCHC 33.9 g/dL (31.0-37.0); MCV 88.2 fL (80.0-100.0); Mean Platelet Volume 7.8; RDW 13.7 % (11.5-15.5); WBC 1.6 k/uL (3.8-10.6)
[2020-08-27 08:09] LABS: Platelet Count 69 k/uL (150-450)
[2020-08-27 09:21] LABS: African American GFR (CKD) >90 (>60 ml/min/1.73 sqM); Anion Gap 7 mmol/L; Blood Urea Nitrogen 7 mg/dL (9-20); Calcium 8.4 mg/dL (8.4-10.2); Carbon Dioxide 26 mmol/L (22-30); Chloride 107 mmol/L (98-107); Glucose 105 mg/dL (74-99); Non-African American GFR(CKD) >90 (>60 ml/min/1.73 sqM); Potassium 3.4 mmol/L (3.5-5.1); Sodium 140 mmol/L (137-145)
[2020-08-27 09:25] VITALS: BP 109/53; RESP 16; TEMP 98.2
[2020-08-27 09:32] LABS: Band Neutrophils % 1 %; Basophils # (M) 0.02 k/uL (0-0.2); Eosinophils # (M) 0.02 k/uL (0-0.7); Lymphocytes # (M) 0.16 k/uL (1.0-4.8); Metamyelocytes # (M) 0.02 k/uL (0); Metamyelocytes % 1 %; Monocytes # (M) 0.38 k/uL (0-1.0); Myelocytes # (M) 0.02 k/uL (0); Myelocytes % 1 %; Neutrophils % (M) 64 %; Nucleated Red Blood Cells 0 /100 WBC (0-0); Total Cells Counted 200
[2020-08-27 09:33] LABS: Anisocytosis (M) Present; Poikilocytosis (M) Present
[2020-08-27] MEDS: PANTOPRAZOLE 40 MG/10 ML VIAL IVP SCH (09:43)
[2020-08-27] MEDS: clonazePAM 0.5 MG TAB PO SCH (09:43)
[2020-08-27] MEDS: ONDANSETRON 4 MG TAB PO PRN (09:54)
[2020-08-27] MEDS: POTASSIUM CHLORIDE ER 20 MEQ TAB.ER PO SCH ×2 (11:20→13:40)
--- NOTE | 2020-08-27 12:46 | P.PN ---
Subjective Progress Note Date: 08/27/20 Principal diagnosis: Dobbhoff tube placement This is a pleasant 49-year-old white female with a history of esophageal cancer diagnosed in May of this year. 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 He is present ly being followed at the [facility]. He has been started on chemo and radiation therapy with the plan of surgery in the future. He has been having persistent nausea, vomiting, weakness and dysphasia. Patient has been unable to tolerate any liquids or solids without vomiting. He says subsequently lost at least 15-20 pounds since the onset of his symptoms. Yesterday he underwent a Dobbhoff tube placement per Dr. Espinoza at the bedside. Tube feedings have been started which she is tolerating well. He is currently denying any abdominal pain, nausea, or vomiting with the tube feedings. Objective - Vital Signs Vital signs: Vital Signs Temp 98.2 F 08/27/20 09:00 Pulse 89 08/27/20 09:00 Resp 16 08/27/20 09:00 BP 109/53 08/27/20 09:00 Pulse Ox 98 08/27/20 09:00 Intake & Output 08/26/20 08/27/20 08/27/20 18:59 06:59 18:59 Intake Total 5 130 160 Balance 5 130 160 Weight 73.8 kg Intake: Tube Feeding 5 130 160 Other: Voiding Method Toilet Toilet - Exam General appearance: The patient is alert, oriented, in no acute distress. HET: Head is normocephalic and atraumatic. Conjunctiva pink. Sclera anicteric. Dobbhoff tube in place and secured. Neck: Supple without lymphadenopathy. Abdomen: Soft, nontender, nondistended with bowel sounds. Extremities: Normal skin color and turgor. No pedal edema. Neurological: No focal deficits. Alert and oriented 3. - Labs CBC & Chem 7: 08/27/20 07:13 08/27/20 08:22 Labs: Abnormal Lab Results - Last 24 Hours (Table) 08/26/20 08/26/20 08/27/20 Range/Units 13:50 13:50 07:13 WBC 1.6 L 1.6 L (3.8-10.6) k/uL RBC 3.31 L 3.00 L (4.30-5.90) m/uL Hgb 10.0 L 9.0 L (13.0-17.5) gm/dL Hct 29.6 L 26.5 L (39.0-53.0) % Plt Count 74 L 69 L (150-450) k/uL Neutrophils # (Manual) 1.00 L (1.3-7.7) k/uL Lymphocytes # (Manual) 0.16 L (1.0-4.8) k/uL Metamyelocytes # (Man) 0.02 H (0) k/uL Myelocytes # (Manual) 0.02 H (0) k/uL Potassium 3.2 L (3.5-5.1) mmol/L Chloride 108 H (98-107) mmol/L BUN 7 L (9-20) mg/dL Creatinine 0.56 L (0.66-1.25) mg/dL Glucose (74-99) mg/dL Calcium (8.4-10.2) mg/dL Total Protein 5.3 L (6.3-8.2) g/dL Albumin 3.1 L (3.5-5.0) g/dL 08/27/20 08/27/20 Range/Units 07:13 08:22 WBC (3.8-10.6) k/uL RBC (4.30-5.90) m/uL Hgb (13.0-17.5) gm/dL Hct (39.0-53.0) % Plt Count (150-450) k/uL Neutrophils # (Manual) (1.3-7.7) k/uL Lymphocytes # (Manual) (1.0-4.8) k/uL Metamyelocytes # (Man) (0) k/uL Myelocytes # (Manual) (0) k/uL Potassium 8.1 H* 3.4 L (3.5-5.1) mmol/L Chloride (98-107) mmol/L BUN 7 L 7 L (9-20) mg/dL Creatinine 0.55 L 0.56 L (0.66-1.25) mg/dL Glucose 109 H 105 H (74-99) mg/dL Calcium 2.3 L* (8.4-10.2) mg/dL Total Protein 5.2 L (6.3-8.2) g/dL Albumin 2.9 L (3.5-5.0) g/dL Microbiology - Last 24 Hours (Table) 08/24/20 21:15 Blood Culture - Preliminary Blood No Growth after 48 hours Assessment and Plan Assessment: 1. Esophageal adenocarcinoma diagnosed in May of this year. Stage III, presently undergoing neoadjuvant chemoradiation and follows with oncologist at [facility] 2. Severe dysphasia to solids and even liquids, secondary to tight distal esophageal stricture. The patient had an EUS done in May of this year and as per the family, the endoscope could not be advanced into the esophagus. He was recommended by his oncologist to have a Dobbhoff tube placement for maintaining his nutrition and not NG tube or G-tube placement at this time because of plans to do surgery after chemoradiation. 3. Pancytopenia secondary to recent chemotherapy 4. Progressive weight loss Plan: 1. Continue with symptomatic and supportive care 2. Broad-spectrum antibiotics 3. Anti-emetics as needed, continue Protonix 4. Nothing by mouth, can advance to clear liquids if tolerated 5. Status post Dobbhoff tube placement 6. Dietitian to manage tube feedings. The impression and plan of care has been dictated as directed. Dr. Michael Valencia I performed a history and examination of this patient, discussed the same with the dictator. I agree with the dictator's note ,documented as a scribe. Any additional findings or plans will be noted.
--- NOTE | 2020-08-28 14:54 | CDI ---
Documentation Clarification Form Date: 08/28/20 From: Hiral Weiss CCS Phone: If you have a question about this query, please contact Dia Regalado, Operating System Designer at [phone] between 8am and 5pm. Admit Date: 08/25/20 Discharge Date:08/27/20 Patient Name: Bud Richard Visit Number: [id number] ATTENTION: The Clinical Documentation Specialists (CDI) and [facility] Coding Staff appreciate your assistance in clarifying documentation. Please respond to the clarification below the line at the bottom and electronically sign. The CDI & [facility] Coding staff will review the response and follow-up if needed. Please note: Queries are made part of the Legal Health Record. If you have any questions, please contact the author of this message via ITS. Dear Dr. Ventura, Severe malnutrition has been documented in Dietary Consult 08/25. History/Risk Factors: Esophageal CA, Stricture, ROXY, GERD, Pancytopenia, Chemo Clinical Indicators: Underweight, Cachexia, Progressive weight loss Current BMI: 22.4 Treatment: Enteral Nutrition, Dobhoff tube placement Dietary Consult: 08/25 EN: 08/26 Lab monitoring: Albumin 3.2, 3.1, 2.9 In your professional opinion, can you please clarify if these findings signify one of the following conditions? Mild Protein-Calorie Malnutrition Moderate Protein-Calorie Malnutrition Severe Protein-Calorie Malnutrition Malnutrition, unspecified Malnutrition following GI surgery Underweight Other condition, please specify Unable to determine MTDD
--- NOTE | 2020-09-07 07:46 | CDI ---
Documentation Clarification Form Date: 09/07/20 From: Hiral Weiss CCS Phone: If you have a question about this query, please contact Dia Regalado, Mooner at [phone] between 8am and 5pm. Admit Date: 08/25/20 Discharge Date:08/27/20 Patient Name: Bud Richard Visit Number: [id number] ATTENTION: The Clinical Documentation Specialists (CDI) and [facility] Coding Staff appreciate your assistance in clarifying documentation. Please respond to the clarification below the line at the bottom and electronically sign. The CDI & [facility] Coding staff will review the response and follow-up if needed. Please note: Queries are made part of the Legal Health Record. If you have any questions, please contact the author of this message via ITS. Dear Dr. Ventura, Severe malnutrition has been documented in Dietary Consult 08/25. History/Risk Factors: Esophageal CA, Stricture, ROXY, GERD, Pancytopenia, Chemo Clinical Indicators: Underweight, Cachexia, Progressive weight loss Current BMI: 22.4 Treatment: Enteral Nutrition, Dobhoff tube placement Dietary Consult: 08/25 EN: 08/26 Lab monitoring: Albumin 3.2, 3.1, 2.9 In your professional opinion, can you please clarify if these findings signify one of the following conditions? Mild Protein-Calorie Malnutrition Moderate Protein-Calorie Malnutrition Severe Protein-Calorie Malnutrition Malnutrition, unspecified Malnutrition following GI surgery Underweight Other condition, please specify Unable to determine MTDD
--- NOTE | 2020-09-08 07:27 | CDI ---
Documentation Clarification Form Date: 09/08/20 From: Hiral Weiss CCS Phone: If you have a question about this query, please contact Dia Regalado, Watch Band [employer]er at [phone] between 8am and 5pm. Admit Date: 08/25/20 Discharge Date:08/27/20 Patient Name: Bud Richard Visit Number: [id number] ATTENTION: The Clinical Documentation Specialists (CDI) and [facility] Coding Staff appreciate your assistance in clarifying documentation. Please respond to the clarification below the line at the bottom and electronically sign. The CDI & [facility] Coding staff will review the response and follow-up if needed. Please note: Queries are made part of the Legal Health Record. If you have any questions, please contact the author of this message via ITS. Dear Dr. Ventura, Severe malnutrition has been documented in Dietary Consult 08/25. History/Risk Factors: Esophageal CA, Stricture, ROXY, GERD, Pancytopenia, Chemo Clinical Indicators: Underweight, Cachexia, Progressive weight loss Current BMI: 22.4 Treatment: Enteral Nutrition, Dobhoff tube placement Dietary Consult: 08/25 EN: 08/26 Lab monitoring: Albumin 3.2, 3.1, 2.9 In your professional opinion, can you please clarify if these findings signify one of the following conditions? Mild Protein-Calorie Malnutrition Moderate Protein-Calorie Malnutrition Severe Protein-Calorie Malnutrition Malnutrition, unspecified Malnutrition following GI surgery Underweight Other condition, please specify Unable to determine MTDD
--- NOTE | 2020-09-08 14:06 | PN ---
PROGRESS NOTE Severe protein-calorie malnutrition. MMODL / IJN: [id number] /
--- NOTE | 2020-09-14 13:39 | DS ---
DISCHARGE SUMMARY DATE OF ADMISSION: 08/25/2020. DISCHARGE: 08/27/2020. MEDICATIONS: 1. Hydrochlorothiazide 25 mg daily. 2. Zoloft 200 mg daily. 3. Ventolin HFA 2 puffs q.6 hours p.r.n. 4. Zofran 4 mg q.8h p.r.n. 5. Compazine 10 mg q.4 hours p.r.n. 6. Zyprexa 5 mg daily. 7. Ativan 0.5 b.i.d. 8. [place] 7.5 q.6h. 9. Nicotine patch 14 mg daily. 10.Clonazepam 0.5 b.i.d. CONDITION: Stable. PROGNOSIS: Guarded. Ambulate as tolerated HISTORY: This is a white male with metastatic esophageal cancer, early stage III with severe dehydration, difficulty eating and swallowing and malnutrition, severe hypokalemia and malnutrition despite Dobbhoff tube at home. He was given IV fluids, potassium supplementation, antinausea medicine, and pain medication as he is whittling away to nothing with weight loss, severe dehydration, malnutrition. After he was rehydrated, electrolytes replaced. We have a plan for at home. He was sent home with Dobbhoff tube to follow up as an outpatient. Prognosis extremely guarded. Condition guarded. Diet as tolerated. MMODL / IJN: [id number] /
== END 2020-08-27 14:05 | disposition home health service (06) ==
LOC: EC 13:30 → 3NCARDOBS 17:13 → INTOOBSV 08-25 12:21 → OBSVTOIN 08-25 12:21 → UNDODISIN 08-27 14:05
PROVIDERS: ADMIT Family Medicine; ATTEND Family Medicine
DX: E86.0 Dehydration (principal); E43 Unspecified severe protein-calorie malnutrition; E87.6 Hypokalemia; E83.42 Hypomagnesemia; E87.1 Hypo-osmolality and hyponatremia; D61.810 Antineoplastic chemotherapy induced pancytopenia; T45.1X5A Adverse effect of antineoplastic and immunosuppressive drugs, initial encounter; D69.6 Thrombocytopenia, unspecified; D72.819 Decreased white blood cell count, unspecified; C15.5 Malignant neoplasm of lower third of esophagus; C79.9 Secondary malignant neoplasm of unspecified site; K21.9 Gastro-esophageal reflux disease without esophagitis; I10 Essential (primary) hypertension; G47.33 Obstructive sleep apnea (adult) (pediatric); F41.9 Anxiety disorder, unspecified; R91.8 Other nonspecific abnormal finding of lung field; K20.8 Other esophagitis; F17.200 Nicotine dependence, unspecified, uncomplicated; Z79.899 Other long term (current) drug therapy; Z79.891 Long term (current) use of opiate analgesic; Z87.01 Personal history of pneumonia (recurrent); Z99.89 Dependence on other enabling machines and devices; Z87.09 Personal history of other diseases of the respiratory system; Z87.19 Personal history of other diseases of the digestive system; Z98.890 Other specified postprocedural states; Z98.41 Cataract extraction status, right eye; Z98.42 Cataract extraction status, left eye; Z96.1 Presence of intraocular lens; Z68.22 Body mass index [BMI] 22.0-22.9, adult; Z80.9 Family history of malignant neoplasm, unspecified; Y84.2 Radiological procedure and radiotherapy as the cause of abnormal reaction of the patient, or of later complication, without mention of misadventure at the time of the procedure
CPT/HCPCS: 96361 ×2; 96366 ×5; 96367 ×2; 96375 ×2; 96376 ×5; 96365; 99285; 36415; 93005; 97165; 92610; 80053 ×3; 80048; 83605; 83735 ×4; 84100; 84132; 84484; 85025 ×4; 85610; 81003; 87040; 71046; 74018; G0378 ×5; J2550 ×3; J3480 ×3; J0692 ×4; J1170 ×5; J3475 ×2; C9113 ×3

== ENCOUNTER 2020-09-03 20:39 | Observation (INO) | payer BC, OTHER ==
[2020-09-03] MEDS ORDERED: SODIUM CHLORIDE 0.9% 500 ML 500 ML IV STA (21:06)
[2020-09-03] MEDS ORDERED: ONDANSETRON 4 MG/2 ML VIAL IVP STA (21:06)
[2020-09-03] MEDS ORDERED: SODIUM CHLORIDE 0.9% 1,000 ML IV STA ×2 (21:06)
--- NOTE | 2020-09-03 21:06 | ED ---
Nausea/Vomiting/Diarrhea HPI - General Chief complaint: Nausea/Vomiting/Diarrhea Stated complaint: Dehydration,CA Patient Time Seen by Provider: 09/03/20 21:06 Source: patient, RN notes reviewed, old records reviewed Mode of arrival: wheelchair Limitations: no limitations - History of Present Illness Initial comments: This is a 49-year-old male DF for evaluation patient presents today for evaluation regards to weakness. Going to treatment for esophageal cancer and treatment today became significantly weak. Persistent nausea vomiting unable to keep down fluids, history of same thing secondary to usually [facility] abnormalities due to decreased intake MD complaint: nausea, vomiting -: days(s) Description of Vomiting: watery, bilious Description of Diarrhea: water Location: diffuse Radiation: none Severity: mild Quality: cramping Consistency: constant Improves with: none Worsens with: none Associated Symptoms: myalgias, loss of appetite, nausea/vomiting, weakness - Related Data Home Medications Medication Instructions Recorded Confirmed Sertraline [Zoloft] 200 mg PO HS 01/29/20 09/03/20 Albuterol Inhaler [Ventolin Hfa 1 puff INHALATION RT-Q6H PRN 05/29/20 09/03/20 Inhaler] HYDROcodone/APAP 7.5-325MG [[place] 1 tab PO Q6HR PRN 08/24/20 09/03/20 7.5-325] OLANZapine [ZyPREXA] 5 mg PO HS 08/24/20 09/03/20 Prochlorperazine [Compazine] 10 mg PO Q4H PRN 08/24/20 09/03/20 Aspirin [Adult Low Dose Aspirin EC] 81 mg PO DAILY 09/03/20 09/03/20 LORazepam [Ativan] 0.5 mg PO BID PRN 09/03/20 09/04/20 hydroCHLOROthiazide [Hydrodiuril] 12.5 mg PO DAILY 09/03/20 09/03/20 HYDROmorphone HCL [Dilaudid] 4 - 8 mg PO Q4H PRN 09/04/20 09/04/20 Lidocaine-Prilocaine Cream [Emla 1 applic TOPICAL DAILY PRN 09/04/20 09/04/20 Cream 2.5%/2.5%] Ondansetron Odt [Zofran Odt] 8 mg PO Q8HR PRN 09/04/20 09/04/20 clonazePAM [KlonoPIN] 1 mg PO BID PRN 09/04/20 09/04/20 Allergies Allergy/AdvReac Type Severity Reaction Status Date / Time No Known Allergies Allergy Verified 09/03/20 20:54 Review of Systems ROS Statement: Those systems with pertinent positive or pertinent negative responses have been documented in the HPI. ROS Other: All systems not noted in ROS Statement are negative. Past Medical History Past Medical History: Asthma, Cancer, Chest Pain / Angina, GERD/Reflux, Hypertension, Pneumonia, Sleep Apnea/CPAP/BIPAP Additional Past Medical History / Comment(s): Pt states he had a nuclear stress test when he was 25 or 26 yrs [id number] attributes his chest pain at that time to anxiety, ROXY with CPap, childhood asthma, bronchitis. stage 3 esophagial cancer History of Any Multi-Drug Resistant Organisms: None Reported Additional Past Surgical History / Comment(s): HEMORRHOIDECTOMY, EGD, colonoscopy, deviated septal surgery, bilateral cataract removals/lens implants. dundo Past Anesthesia/Blood Transfusion Reactions: No Reported Reaction Past Psychological History: Anxiety Smoking Status: Current every day smoker Past Alcohol Use History: None Reported Past Drug Use History: None Reported - Past Family History Father Family Medical History: Cancer Additional Family Medical History / Comment(s): Father of metastatic cancer (primary unknown) at the age of 62 yrs. Mother Family Medical History: No Reported History Additional Family Medical History / Comment(s): Mother is healthy and is 78yrs old. General Exam Limitations: no limitations General appearance: alert, in no apparent distress Head exam: Present: atraumatic, normocephalic, normal inspection Eye exam: Present: normal appearance, PERRL, EOMI. Absent: scleral icterus, conjunctival injection, periorbital swelling ENT exam: Present: normal exam, mucous membranes moist Neck exam: Present: normal inspection. Absent: tenderness, meningismus, lymphadenopathy Respiratory exam: Present: normal lung sounds bilaterally. Absent: respiratory distress, wheezes, rales, rhonchi, stridor Cardiovascular Exam: Present: regular rate, normal rhythm, normal heart sounds. Absent: systolic murmur, diastolic murmur, rubs, gallop, clicks GI/Abdominal exam: Present: soft, normal bowel sounds. Absent: distended, tenderness, guarding, rebound, rigid Extremities exam: Present: normal inspection, full ROM, normal capillary refill. Absent: tenderness, pedal edema, joint swelling, calf tenderness Back exam: Present: normal inspection Neurological exam: Present: alert, oriented X3, CN II-XII intact Psychiatric exam: Present: normal affect, normal mood Skin exam: Present: warm, dry, intact, normal color. Absent: rash Course Vital Signs 09/03/20 09/03/20 20:50 23:33 Temperature 99.0 F Pulse Rate 95 95 Respiratory 20 16 Rate Blood Pressure 148/97 111/61 O2 Sat by Pulse 100 97 Oximetry - Reevaluation(s) Reevaluation #1: Medical record is reviewed Patient spoken at length regarding findings here in the ER, questions answered Patient feels improved - Consultations Consultation #1: Spoke with Dr. Ventura agrees to admit this patient Medical Decision Making - Medical Decision Making 49-year-old male DF esophageal CA coming in for weakness, [place] for electrolyte replacement and symptom management - Lab Data Result diagrams: 09/04/20 07:26 09/04/20 17:13 Lab Results 09/03/20 09/03/20 09/03/20 Range/Units 21:15 21:15 21:15 WBC 5.1 (3.8-10.6) k/uL RBC 3.28 L (4.30-5.90) m/uL Hgb 10.0 L (13.0-17.5) gm/dL Hct 29.0 L (39.0-53.0) % MCV 88.4 (80.0-100.0) fL MCH 30.5 (25.0-35.0) pg MCHC 34.5 (31.0-37.0) g/dL RDW 15.8 H (11.5-15.5) % Plt Count 173 D (150-450) k/uL Neutrophils % 79 % Lymphocytes % 7 % Monocytes % 11 % Eosinophils % 1 % Basophils % 0 % Neutrophils # 4.0 (1.3-7.7) k/uL Lymphocytes # 0.4 L (1.0-4.8) k/uL Monocytes # 0.6 (0-1.0) k/uL Eosinophils # 0.0 (0-0.7) k/uL Basophils # 0.0 (0-0.2) k/uL Sodium 133 L (137-145) mmol/L Potassium 2.6 L* (3.5-5.1) mmol/L Chloride 97 L (98-107) mmol/L Carbon Dioxide 27 (22-30) mmol/L Anion Gap 9 mmol/L BUN 16 (9-20) mg/dL Creatinine 0.60 L (0.66-1.25) mg/dL Est GFR (CKD-EPI)AfAm >90 (>60 ml/min/1.73 sqM) Est GFR (CKD-EPI)NonAf >90 (>60 ml/min/1.73 sqM) Glucose 121 H (74-99) mg/dL Plasma Lactic Acid [place] (0.7-2.0) mmol/L Calcium 9.4 (8.4-10.2) mg/dL Phosphorus 2.3 L (2.5-4.5) mg/dL Magnesium 1.8 (1.6-2.3) mg/dL Total Bilirubin 0.6 (0.2-1.3) mg/dL AST 29 (17-59) U/L ALT 16 (4-49) U/L Alkaline Phosphatase 72 (38-126) U/L Creatine Kinase 41 L (55-170) U/L Troponin I (0.000-0.034) ng/mL Total Protein 6.3 (6.3-8.2) g/dL Albumin 3.8 (3.5-5.0) g/dL Urine Color Light Yellow Urine Appearance Clear (Clear) Urine pH 7.5 (5.0-8.0) Ur Specific [place] 1.009 (1.001-1.035) Urine Protein Negative (Negative) Urine Glucose (UA) Negative (Negative) Urine Ketones Negative (Negative) Urine Blood Negative (Negative) Urine Nitrite Negative (Negative) Urine Bilirubin Negative (Negative) Urine Urobilinogen <2.0 (<2.0) mg/dL Ur Leukocyte Esterase Negative (Negative) 09/03/20 09/03/20 Range/Units 21:15 21:15 WBC (3.8-10.6) k/uL RBC (4.30-5.90) m/uL Hgb (13.0-17.5) gm/dL Hct (39.0-53.0) % MCV (80.0-100.0) fL MCH (25.0-35.0) pg MCHC (31.0-37.0) g/dL RDW (11.5-15.5) % Plt Count (150-450) k/uL Neutrophils % % Lymphocytes % % Monocytes % % Eosinophils % % Basophils % % Neutrophils # (1.3-7.7) k/uL Lymphocytes # (1.0-4.8) k/uL Monocytes # (0-1.0) k/uL Eosinophils # (0-0.7) k/uL Basophils # (0-0.2) k/uL Sodium (137-145) mmol/L Potassium (3.5-5.1) mmol/L Chloride (98-107) mmol/L Carbon Dioxide (22-30) mmol/L Anion Gap mmol/L BUN (9-20) mg/dL Creatinine (0.66-1.25) mg/dL Est GFR (CKD-EPI)AfAm (>60 ml/min/1.73 sqM) Est GFR (CKD-EPI)NonAf (>60 ml/min/1.73 sqM) Glucose (74-99) mg/dL Plasma Lactic Acid [place] 1.1 (0.7-2.0) mmol/L Calcium (8.4-10.2) mg/dL Phosphorus (2.5-4.5) mg/dL Magnesium (1.6-2.3) mg/dL Total Bilirubin (0.2-1.3) mg/dL AST (17-59) U/L ALT (4-49) U/L Alkaline Phosphatase (38-126) U/L Creatine Kinase (55-170) U/L Troponin I <0.012 (0.000-0.034) ng/mL Total Protein (6.3-8.2) g/dL Albumin (3.5-5.0) g/dL Urine Color Urine Appearance (Clear) Urine pH (5.0-8.0) Ur Specific [place] (1.001-1.035) Urine Protein (Negative) Urine Glucose (UA) (Negative) Urine Ketones (Negative) Urine Blood (Negative) Urine Nitrite (Negative) Urine Bilirubin (Negative) Urine Urobilinogen (<2.0) mg/dL Ur Leukocyte Esterase (Negative) - EKG Data -: EKG Interpreted by Me (EKG shows sinus rhythm 87 [place] 162 QRS 84 QTc 460) Disposition Clinical Impression: Hypokalemia, Weakness, Esophageal cancer, Dehydration Disposition: ADMITTED IP TO THIS HOSP Condition: Fair Is patient prescribed a controlled substance at d/c from ED?: No
[2020-09-03 21:43] LABS: Basophils % (A) 0 %; Eosinophils % (A) 1 %; Lymphocytes # (A) 0.4 k/uL (1.0-4.8); Lymphocytes % (A) 7 %; MCH 30.5 pg (25.0-35.0); MCHC 34.5 g/dL (31.0-37.0); MCV 88.4 fL (80.0-100.0); Mean Platelet Volume 8.2; Monocytes # (A) 0.6 k/uL (0-1.0); Monocytes % (A) 11 %; Neutrophils % (A) 79 %; RBC 3.28 m/uL (4.30-5.90); RDW 15.8 % (11.5-15.5); WBC 5.1 k/uL (3.8-10.6)
[2020-09-03 21:47] LABS: Platelet Count 173 k/uL (150-450)
[2020-09-03 21:53] LABS: ALT 16 U/L (4-49); AST 29 U/L (17-59); African American GFR (CKD) >90 (>60 ml/min/1.73 sqM); Albumin 3.8 g/dL (3.5-5.0); Alkaline Phosphatase 72 U/L (38-126); Anion Gap 9 mmol/L; Blood Urea Nitrogen 16 mg/dL (9-20); Calcium 9.4 mg/dL (8.4-10.2); Carbon Dioxide 27 mmol/L (22-30); Chloride 97 mmol/L (98-107); Creatine Kinase 41 U/L (55-170); Glucose 121 mg/dL (74-99); Magnesium 1.8 mg/dL (1.6-2.3); Non-African American GFR(CKD) >90 (>60 ml/min/1.73 sqM); Phosphorus 2.3 mg/dL (2.5-4.5); Sodium 133 mmol/L (137-145); Total Bilirubin 0.6 mg/dL (0.2-1.3); Total Protein 6.3 g/dL (6.3-8.2)
[2020-09-03 22:09] LABS: Potassium 2.6 mmol/L (3.5-5.1)
[2020-09-03] MEDS ORDERED: ONDANSETRON 4 MG/2 ML VIAL IVP PRN (22:38)
[2020-09-03] MEDS ORDERED: LORazepam 2 MG/ML INJ IV STA (22:38)
[2020-09-03] MEDS ORDERED: MORPHINE SULFATE 4 MG/ML SYRINGE IVP PRN (22:38)
[2020-09-03] MEDS ORDERED: Potassium Replacement Protocol 1 EACH MISC MISCELLANE PRN (22:40)
[2020-09-04] MEDS: POTASSIUM CHLORIDE 10 MEQ in WATER FOR INJECTION 1 100ML.BAG IVPB SCH ×10 (00:18→15:01)
[2020-09-04] MEDS: SERTRALINE 100 MG TAB PO SCH ×3 (00:27→08:03)
[2020-09-04 02:34] LABS: Appearance,Urine Clear (Clear); Bilirubin,Urine Negative (Negative); Blood,Urine Negative (Negative); Color,Urine Light Yellow; Glucose,Urine (UA) Negative (Negative); Ketones,Urine Negative (Negative); Leukocyte Esterase,Urine Negative (Negative); Nitrite,Urine Negative (Negative); PH, Urine 7.5 (5.0-8.0); Protein,Urine Negative (Negative); Specific Gravity,Urine 1.009 (1.001-1.035); Urobilinogen,Urine <2.0 mg/dL (<2.0)
[2020-09-04] MEDS ORDERED: POTASSIUM CHLORIDE 10 MEQ in WATER FOR INJECTION 1 100ML.BAG IVPB SCH (06:00)
[2020-09-04 07:40] LABS: HCT 27.5 % (39.0-53.0); HGB 9.6 gm/dL (13.0-17.5); MCH 32.5 pg (25.0-35.0); MCV 93.1 fL (80.0-100.0); Mean Platelet Volume 7.2; Platelet Count 158 k/uL (150-450); RBC 2.96 m/uL (4.30-5.90); RDW 15.2 % (11.5-15.5); WBC 4.2 k/uL (3.8-10.6)
[2020-09-04] MEDS: PANTOPRAZOLE 40 MG/10 ML VIAL IVP SCH (08:02)
[2020-09-04] MEDS: LORazepam 2 MG/ML INJ IV PRN ×2 (08:03→15:00)
[2020-09-04 08:04] LABS: African American GFR (CKD) >90 (>60 ml/min/1.73 sqM); Anion Gap 5 mmol/L; Blood Urea Nitrogen 12 mg/dL (9-20); Calcium 8.6 mg/dL (8.4-10.2); Carbon Dioxide 26 mmol/L (22-30); Chloride 103 mmol/L (98-107); Glucose 105 mg/dL (74-99); Non-African American GFR(CKD) >90 (>60 ml/min/1.73 sqM); Potassium 3.4 mmol/L (3.5-5.1); Sodium 134 mmol/L (137-145)
[2020-09-04] MEDS ORDERED: ONDANSETRON 4 MG TAB PO PRN (08:32)
[2020-09-04] MEDS ORDERED: PROCHLORPERAZINE 10 MG TAB PO PRN (08:32)
[2020-09-04] MEDS ORDERED: ALBUTEROL NEBULIZED 2.5 MG/3 ML INHALATION PRN (08:32)
[2020-09-04] MEDS ORDERED: HYDROcodone/APAP 7.5-325MG 1 EACH TAB PO PRN (08:32)
[2020-09-04] MEDS: ASPIRIN 81 MG PO SCH (09:13)
[2020-09-04 09:36] VITALS: BMI 21.8
[2020-09-04] MEDS ORDERED: Potassium Replacement Protocol 1 EACH MISC MISCELLANE PRN (10:14)
[2020-09-04] MEDS: HYDROmorphone 1 MG/ML 1 ML SYRINGE IVP PRN (17:24)
[2020-09-04] MEDS ORDERED: OLANZapine 5 MG TAB PO SCH (21:00)
[2020-09-04] MEDS ORDERED: SERTRALINE 100 MG TAB PO SCH (21:00)
--- NOTE | 2020-09-04 22:48 | HP ---
HISTORY AND PHYSICAL This patient is a 49-year-old white male who presented to the hospital one week post chemotherapy and daily radiation therapy for esophageal cancer. He is extremely weak, fatigued, poor oral nutrition, severe hypokalemia. He has been getting potassium replacement overnight. He is weak, fatigued, dehydrated, needs electrolyte replacement and nutrition. He has a Dobbhoff tube intact that he has been getting feeding from, but he is still weak, fatigued and pancytopenic. HOME MEDICINES: 1. Zoloft 200 mg daily. 2. Klonopin 1 mg b.i.d. 3. Zyprexa 5 mg at bedtime. 4. [place] 7.5 q.6 p.r.n. 5. Albuterol 2 puffs q.6 p.r.n. 6. Compazine 10 mg q.4 hours p.r.n. ALLERGIES: NEGATIVE. REVIEW OF SYSTEMS: Fourteen-point review of systems negative except for mentioned in HPI. PAST MEDICAL HISTORY: Asthma, chest pain, angina, cancer, GERD, hypertension, pneumonia, sleep apnea, hemorrhoidectomy, EGD, colonoscopy, deviated septal surgery, cataract removal. He is scheduled for surgery in about a month for removal of esophageal cancer. FAMILY HISTORY: Father with metastatic cancer at age 62. Mother healthy at 78. PHYSICAL EXAMINATION: Temperature is 99, pulse 90 to 95, respiratory rate 18 to 20, blood pressure 148/97, oxygenation 100%. CARDIOVASCULAR: S1, S2. LUNGS: Clear. GI: Soft. INTEGUMENT: No rashes. Dry mucous membranes. Poor skin turgor. HEENT: Dobbhoff tube in his nose. LABS: Hemoglobin is 10, white count 5.1. Sodium 133, potassium 2.6 on admission. BUN 16, creatinine 0.6. Glucose 121. Plasma lactic acid 1.1. ASSESSMENT: 1. Dehydration. 2. Esophageal cancer, status post chemotherapy. 3. Severe hypokalemia. 4. Generalized weakness. 5. Esophageal cancer. Electrolyte replacement. Nutrition replacement. Fluid replacement. Advance diet as tolerated. Continue with tube feeding. MMODL / IJN: [id number] /
[2020-09-05] MEDS: HYDROmorphone 1 MG/ML 1 ML SYRINGE IVP PRN ×3 (01:44→10:30)
[2020-09-05] MEDS: LORazepam 2 MG/ML INJ IV PRN (02:36)
[2020-09-05 04:25] LABS: Basophils % (A) 0 %; Eosinophils % (A) 1 %; HCT 26.8 % (39.0-53.0); Lymphocytes # (A) 0.2 k/uL (1.0-4.8); Lymphocytes % (A) 5 %; MCH 30.3 pg (25.0-35.0); MCHC 33.5 g/dL (31.0-37.0); MCV 90.6 fL (80.0-100.0); Mean Platelet Volume 8.2; Monocytes # (A) 0.4 k/uL (0-1.0); Monocytes % (A) 10 %; Neutrophils # (A) 3.6 k/uL (1.3-7.7); Neutrophils % (A) 82 %; Platelet Count 165 k/uL (150-450); RBC 2.95 m/uL (4.30-5.90); RDW 15.8 % (11.5-15.5); WBC 4.4 k/uL (3.8-10.6)
[2020-09-05] MEDS: ASPIRIN 81 MG PO SCH (08:04)
[2020-09-05] MEDS: SERTRALINE 100 MG TAB PO SCH (08:04)
[2020-09-05] MEDS: PANTOPRAZOLE 40 MG/10 ML VIAL IVP SCH (08:05)
[2020-09-05 10:13] LABS: African American GFR (CKD) 146.4 (60.0-200.0); Albumin 3.5 g/dL (3.80-4.90); Albumin/Globulin Ratio 2.33 (1.60-3.17); Anion Gap 8.4 mmol/L (4.00-12.00); Calcium 8.8 mg/dL (8.7-10.3); Carbon Dioxide 27.6 mmol/L (21.6-31.8); Globulin 1.5 g/dL (1.6-3.3); Non-African American GFR(CKD) 126.4 (60.0-200.0); Potassium 3.6 mmol/L (3.5-5.5); Total Bilirubin 0.2 mg/dL (0.3-1.2)
[2020-09-05 12:20] VITALS: BP 103/41; PULSE 75; RESP 17; TEMP 97.4
--- NOTE | 2020-09-29 22:29 | DS ---
DISCHARGE SUMMARY DATE OF ADMISSION: 09/03/2020 DATE OF DISCHARGE: 09/05/2020 DISCHARGE MEDICATIONS: 1. Zoloft 200 mg at night. 2. Albuterol; nebulized albuterol HFA inhaler 2 puffs q.4 hours p.r.n. 3. Compazine 10 mg p.o. q.4 hours p.r.n. 4. Zyprexa 5 mg at bedtime. 5. [place] 7.5 q.6 hours p.r.n. 6. Hydrochlorothiazide 12.5 mg daily. 7. Ativan 0.5 mg b.i.d. p.r.n. 8. Aspirin 81 mg daily. 9. Zofran 8 mg q.8 hours p.r.n. 10.Klonopin 1 mg b.i.d. 11.Dilaudid mg p.o. q.4 hours p.r.n. 12.EMLA cream 2.5% application topically daily. 13.Zoloft 200 daily. CONDITION: Stable. PROGNOSIS: Guarded. Ambulate as tolerated. ASSESSMENT: 1. Dehydration. 2. Protein-calorie malnutrition. 3. Hypokalemia. 4. Metastatic esophageal cancer. The patient came in severely malnourished, dehydrated and weak liquids and food. Potassium was low. replace. Electrolytes were replaced. The patient will be set up with rehydration. Medications. Outpatient [facility] 3 times a week for 2 L of fluid with 20 mEq of potassium per liter to replace potassium and electrolytes, as he cannot keep any food or liquid down due to esophageal cancer until possible esophageal surgeries done in 2-3 weeks. Prognosis extremely guarded. MMODL / IJN: [id number] /
== END 2020-09-05 14:34 | disposition home or self-care (01) ==
LOC: EC 20:39 → INTOOBSV 22:39 → 6NMEDSUR 22:39 → UNDODISIN 09-05 14:34
PROVIDERS: ADMIT Family Medicine; ATTEND Family Medicine
DX: E86.0 Dehydration (principal); E43 Unspecified severe protein-calorie malnutrition; E87.6 Hypokalemia; C15.9 Malignant neoplasm of esophagus, unspecified; C79.9 Secondary malignant neoplasm of unspecified site; M79.10 Myalgia, unspecified site; R11.2 Nausea with vomiting, unspecified; R63.0 Anorexia; D61.818 Other pancytopenia; K21.9 Gastro-esophageal reflux disease without esophagitis; I10 Essential (primary) hypertension; G47.33 Obstructive sleep apnea (adult) (pediatric); F41.9 Anxiety disorder, unspecified; F17.200 Nicotine dependence, unspecified, uncomplicated; Z97.8 Presence of other specified devices; Z79.899 Other long term (current) drug therapy; Z79.891 Long term (current) use of opiate analgesic; Z79.82 Long term (current) use of aspirin; Z87.09 Personal history of other diseases of the respiratory system; Z87.01 Personal history of pneumonia (recurrent); Z99.89 Dependence on other enabling machines and devices; Z87.19 Personal history of other diseases of the digestive system; Z98.890 Other specified postprocedural states; Z98.41 Cataract extraction status, right eye; Z98.42 Cataract extraction status, left eye; Z96.1 Presence of intraocular lens; Z68.24 Body mass index [BMI] 24.0-24.9, adult; Z80.9 Family history of malignant neoplasm, unspecified
CPT/HCPCS: 96376 ×2; 96365; 96366; 96375 ×2; 96361; 99285; 36415; 93005; 80053 ×2; 80048; 82550; 83605; 83735; 84100; 84132; 84484; 85025 ×2; 85027; 81003; G0378 ×3; J2060 ×3; J2405 ×2; J1170 ×2; J3480; J1642; C9113 ×2; 96374

== ENCOUNTER 2020-09-07 11:45 | Inpatient (IN) | payer BC, OTHER ==
--- NOTE | 2020-09-07 12:11 | ED ---
Weakness HPI <Mauricio - Last Filed: 09/07/20 13:25> - General Source: patient Mode of arrival: wheelchair Limitations: no limitations <Perry Thomas - Last Filed: 09/07/20 13:48> - General Chief complaint: Weakness Stated complaint: lab recheck Time Seen by Provider: 09/07/20 12:10 - History of Present Illness Initial comments: Patient is a 49-year-old male with a stage III esophageal cancer presenting to the emergency department with chief complaint of weakness. Patient has gone through multiple rounds of radiation and chemotherapy. Patient states typically about 24-48 hours after receiving chemotherapy he develops weakness and his potassium level started to drop. States he is not able to tolerate much due to esophageal cancer and has been vomiting plenty while he was at home. Patient denies any hematemesis. Patient states he did feeling weak and chilly. He does feel slightly disoriented along with generalized weakness. States typically he is admitted to the hospital and given IV fluids, and potassium. Patient states he does not have any significant pain at this time but has not been tolerating any liquids. Denies any fevers. (Perry Thomas) - Related Data Home Medications Medication Instructions Recorded Confirmed Sertraline [Zoloft] 200 mg PO HS 01/29/20 09/03/20 Albuterol Inhaler [Ventolin Hfa 1 puff INHALATION RT-Q6H PRN 05/29/20 09/03/20 Inhaler] HYDROcodone/APAP 7.5-325MG [[place] 1 tab PO Q6HR PRN 08/24/20 09/03/20 7.5-325] OLANZapine [ZyPREXA] 5 mg PO HS 08/24/20 09/03/20 Prochlorperazine [Compazine] 10 mg PO Q4H PRN 08/24/20 09/03/20 Aspirin [Adult Low Dose Aspirin EC] 81 mg PO DAILY 09/03/20 09/03/20 HYDROmorphone HCL [Dilaudid] 4 - 8 mg PO Q4H PRN 09/04/20 09/04/20 Lidocaine-Prilocaine Cream [Emla 1 applic TOPICAL DAILY PRN 09/04/20 09/04/20 Cream 2.5%/2.5%] Ondansetron Odt [Zofran ODT] 8 mg PO Q8HR PRN 09/04/20 09/04/20 clonazePAM [KlonoPIN] 1 mg PO BID PRN 09/04/20 09/04/20 Previous Rx's Medication Instructions Recorded Sertraline [Zoloft] 200 mg PO DAILY tab 09/05/20 Allergies Allergy/AdvReac Type Severity Reaction Status Date / Time No Known Allergies Allergy Verified 09/07/20 11:56 Review of Systems ROS Other: All systems not noted in ROS Statement are negative. <Michael Martínez - Last Filed: 09/07/20 13:25> ROS Other: All systems not noted in ROS Statement are negative. <Perry Thomas - Last Filed: 09/07/20 13:48> ROS Statement: Those systems with pertinent positive or pertinent negative responses have been documented in the HPI. Past Medical History Past Medical History: Asthma, Cancer, Chest Pain / Angina, GERD/Reflux, Hypertension, Pneumonia, Sleep Apnea/CPAP/BIPAP Additional Past Medical History / Comment(s): Pt states he had a nuclear stress test when he was 25 or 26 yrs [id number] attributes his chest pain at that time to anxiety, ROXY with CPap, childhood asthma, bronchitis. stage 3 esophagial cancer History of Any Multi-Drug Resistant Organisms: None Reported Additional Past Surgical History / Comment(s): HEMORRHOIDECTOMY, EGD, colonoscopy, deviated septal surgery, bilateral cataract removals/lens implants. dundo Past Anesthesia/Blood Transfusion Reactions: No Reported Reaction Past Psychological History: Anxiety Smoking Status: Current every day smoker Past Alcohol Use History: None Reported Past Drug Use History: None Reported - Past Family History Father Family Medical History: Cancer Additional Family Medical History / Comment(s): Father of metastatic cancer (primary unknown) at the age of 62 yrs. Mother Family Medical History: No Reported History Additional Family Medical History / Comment(s): Mother is healthy and is 78yrs old. <Perry Thomas - Last Filed: 09/07/20 13:48> General Exam Limitations: no limitations General appearance: alert, in no apparent distress Head exam: Present: atraumatic, normocephalic, normal inspection Eye exam: Present: normal appearance, PERRL, EOMI, other (Conjunctiva) Pupils: Present: normal accommodation ENT exam: Present: normal exam, normal oropharynx, mucous membranes dry. Absent: mucous membranes moist Neck exam: Present: normal inspection, full ROM. Absent: tenderness Respiratory exam: Present: normal lung sounds bilaterally. Absent: respiratory distress, wheezes, rales Cardiovascular Exam: Present: regular rate, normal rhythm, normal heart sounds GI/Abdominal exam: Present: soft. Absent: distended, tenderness, guarding Extremities exam: Present: normal inspection, full ROM, normal capillary refill (Slight decreased capillary refill). Absent: tenderness Back exam: Present: normal inspection, full ROM. Absent: tenderness, CVA tenderness (R), CVA tenderness (L) Neurological exam: Present: alert, oriented X3 Psychiatric exam: Present: normal affect, normal mood Skin exam: Present: warm, dry, intact, normal color <Perry Thomas - Last Filed: 09/07/20 13:48> Course <Michael Martínez - Last Filed: 09/07/20 13:25> Vital Signs 09/07/20 11:53 Temperature 97.9 F Pulse Rate 92 Respiratory 16 Rate Blood Pressure 99/62 O2 Sat by Pulse 100 Oximetry - Reevaluation(s) Reevaluation #1: 09/07/20 13:25 Patient will be admitted he does have evidence of hypokalemia dehydration status post chemotherapy. I did discuss the case with Dr. Ventura. (Michael Martínez) EKG Findings - EKG Comments: EKG Findings:: Sinus rhythm and no ST-T wave changes. ventricular rate 87, DC 154, QRS 84, QTC 447. <Perry Thomas - Last Filed: 09/07/20 13:48> Medical Decision Making - Lab Data Result diagrams: 09/07/20 12:34 09/07/20 12:34 <Michael Martínez - Last Filed: 09/07/20 13:25> - Lab Data Result diagrams: 09/07/20 12:34 09/07/20 12:34 <Perry Thomas - Last Filed: 09/07/20 13:48> - Medical Decision Making Patient is a 49-year-old male presenting to the emergency department chief complaint of weakness. Patient is a chemotherapy patient for stage III esophageal cancer. Patient does have hypokalemia and is anemic with hemoglobin of 10.1. Patient was given IV fluids, antiemetics, analgesia and potassium. Patient will be admitted for further medical management. Case discussed with Dr. Martínez. Minutes physician is (Perry Thomas) - Lab Data Lab Results 09/07/20 09/07/20 09/07/20 Range/Units 12:34 12:34 12:34 WBC 6.3 (3.8-10.6) k/uL RBC 3.17 L (4.30-5.90) m/uL Hgb 10.1 L (13.0-17.5) gm/dL Hct 28.8 L (39.0-53.0) % MCV 91.1 (80.0-100.0) fL MCH 31.9 (25.0-35.0) pg MCHC 35.1 (31.0-37.0) g/dL RDW 15.9 H (11.5-15.5) % Plt Count 179 (150-450) k/uL Neutrophils % 84 % Lymphocytes % 4 % Monocytes % 9 % Eosinophils % 0 % Basophils % 0 % Neutrophils # 5.3 (1.3-7.7) k/uL Lymphocytes # 0.3 L (1.0-4.8) k/uL Monocytes # 0.5 (0-1.0) k/uL Eosinophils # 0.0 (0-0.7) k/uL Basophils # 0.0 (0-0.2) k/uL APTT 25.5 (22.0-30.0) sec Sodium 136 L (137-145) mmol/L Potassium 3.0 L (3.5-5.1) mmol/L Chloride 101 (98-107) mmol/L Carbon Dioxide 26 (22-30) mmol/L Anion Gap 9 mmol/L BUN 11 (9-20) mg/dL Creatinine 0.61 L (0.66-1.25) mg/dL Est GFR (CKD-EPI)AfAm >90 (>60 ml/min/1.73 sqM) Est GFR (CKD-EPI)NonAf >90 (>60 ml/min/1.73 sqM) Glucose 129 H (74-99) mg/dL Calcium 9.2 (8.4-10.2) mg/dL Magnesium 1.7 (1.6-2.3) mg/dL Total Bilirubin 0.4 (0.2-1.3) mg/dL AST 28 (17-59) U/L ALT 17 (4-49) U/L Alkaline Phosphatase 70 (38-126) U/L Troponin I (0.000-0.034) ng/mL Total Protein 5.9 L (6.3-8.2) g/dL Albumin 3.6 (3.5-5.0) g/dL 09/07/20 Range/Units 12:34 WBC (3.8-10.6) k/uL RBC (4.30-5.90) m/uL Hgb (13.0-17.5) gm/dL Hct (39.0-53.0) % MCV (80.0-100.0) fL MCH (25.0-35.0) pg MCHC (31.0-37.0) g/dL RDW (11.5-15.5) % Plt Count (150-450) k/uL Neutrophils % % Lymphocytes % % Monocytes % % Eosinophils % % Basophils % % Neutrophils # (1.3-7.7) k/uL Lymphocytes # (1.0-4.8) k/uL Monocytes # (0-1.0) k/uL Eosinophils # (0-0.7) k/uL Basophils # (0-0.2) k/uL APTT (22.0-30.0) sec Sodium (137-145) mmol/L Potassium (3.5-5.1) mmol/L Chloride (98-107) mmol/L Carbon Dioxide (22-30) mmol/L Anion Gap mmol/L BUN (9-20) mg/dL Creatinine (0.66-1.25) mg/dL Est GFR (CKD-EPI)AfAm (>60 ml/min/1.73 sqM) Est GFR (CKD-EPI)NonAf (>60 ml/min/1.73 sqM) Glucose (74-99) mg/dL Calcium (8.4-10.2) mg/dL Magnesium (1.6-2.3) mg/dL Total Bilirubin (0.2-1.3) mg/dL AST (17-59) U/L ALT (4-49) U/L Alkaline Phosphatase (38-126) U/L Troponin I <0.012 (0.000-0.034) ng/mL Total Protein (6.3-8.2) g/dL Albumin (3.5-5.0) g/dL Disposition <Michael Martínez - Last Filed: 09/07/20 13:25> Is patient prescribed a controlled substance at d/c from ED?: No Time of Disposition: 13:46 <Perry Thomas - Last Filed: 09/07/20 13:48> Clinical Impression: Generalized weakness, Hypokalemia Disposition: ADMITTED IP TO THIS HOSP Condition: Fair Referrals: Kayode Ventura MD [Primary Care Provider] - 1-2 days
[2020-09-07] MEDS ORDERED: SODIUM CHLORIDE 0.9% 2,000 ML IV STA (12:25)
[2020-09-07] MEDS ORDERED: METOCLOPRAMIDE 5 MG/ML 2 ML VIAL IVP STA (12:26)
[2020-09-07] MEDS ORDERED: diphenhydrAMINE 50 MG/ML 1 ML VIAL IVP STA (12:26)
[2020-09-07] MEDS ORDERED: POTASSIUM CHLORIDE 20 MEQ in WATER FOR INJECTION 1 100ML.BAG IVPB STA (12:30)
[2020-09-07 12:46] LABS: Basophils % (A) 0 %; Eosinophils % (A) 0 %; HCT 28.8 % (39.0-53.0); HGB 10.1 gm/dL (13.0-17.5); Lymphocytes # (A) 0.3 k/uL (1.0-4.8); Lymphocytes % (A) 4 %; MCH 31.9 pg (25.0-35.0); MCHC 35.1 g/dL (31.0-37.0); MCV 91.1 fL (80.0-100.0); Monocytes # (A) 0.5 k/uL (0-1.0); Monocytes % (A) 9 %; Neutrophils # (A) 5.3 k/uL (1.3-7.7); Neutrophils % (A) 84 %; Platelet Count 179 k/uL (150-450); RBC 3.17 m/uL (4.30-5.90); RDW 15.9 % (11.5-15.5); WBC 6.3 k/uL (3.8-10.6)
[2020-09-07] MEDS ORDERED: HYDROmorphone 1 MG/ML 1 ML SYRINGE IVP STA (12:52)
[2020-09-07 12:53] LABS: ALT 17 U/L (4-49); AST 28 U/L (17-59); African American GFR (CKD) >90 (>60 ml/min/1.73 sqM); Albumin 3.6 g/dL (3.5-5.0); Alkaline Phosphatase 70 U/L (38-126); Anion Gap 9 mmol/L; Blood Urea Nitrogen 11 mg/dL (9-20); Calcium 9.2 mg/dL (8.4-10.2); Carbon Dioxide 26 mmol/L (22-30); Chloride 101 mmol/L (98-107); Glucose 129 mg/dL (74-99); Magnesium 1.7 mg/dL (1.6-2.3); Non-African American GFR(CKD) >90 (>60 ml/min/1.73 sqM); Sodium 136 mmol/L (137-145); Total Bilirubin 0.4 mg/dL (0.2-1.3); Total Protein 5.9 g/dL (6.3-8.2)
[2020-09-07] MEDS ORDERED: NALOXONE 0.4 MG/ML 1 ML VIAL IV PRN (13:43)
[2020-09-07] MEDS ORDERED: HYDROmorphone 0.5 MG/0.5 ML SYRINGE IVP PRN (13:43)
[2020-09-07] MEDS: SODIUM CHLORIDE 0.9% 1,000 ML IV SCH (15:14)
[2020-09-07] MEDS: HYDROmorphone 1 MG/ML 1 ML SYRINGE IVP PRN ×2 (17:41→21:46)
[2020-09-07] MEDS: LORazepam 2 MG/ML INJ IV PRN ×2 (17:42→23:56)
[2020-09-07] MEDS: ONDANSETRON 4 MG/2 ML VIAL IVP PRN (17:43)
[2020-09-07] MEDS ORDERED: HYDROcodone/APAP 7.5-325MG 1 EACH TAB PO PRN (22:20)
[2020-09-07] MEDS ORDERED: clonazePAM 1 MG TAB PO PRN (22:20)
[2020-09-07] MEDS ORDERED: PROCHLORPERAZINE 10 MG TAB PO PRN (22:20)
[2020-09-07] MEDS ORDERED: LIDOCAINE-PRILOCAINE 2.5-2.5% CREAM 5 GM TUBE TOPICAL PRN (22:20)
[2020-09-07] MEDS ORDERED: ALBUTEROL NEBULIZED 2.5 MG/3 ML INHALATION PRN (22:20)
--- NOTE | 2020-09-08 03:32 | HP ---
HISTORY AND PHYSICAL A 49-year-old white male stage III esophageal cancer came in the emergency room complaining of weakness, multiple rounds for radiation and chemotherapy. He was sent home a week ago for nausea, vomiting, with hypokalemia. He is back again due to feeling weak and chilly. He is disoriented a little bit, generalized weakness. He is admitted to the hospital to give him some IV fluids. Replace potassium. Monitor him. HOME MEDICATIONS: 1. Zoloft 200 mg daily. 2. Ventolin HFA 2 puffs q.4 hours p.r.n. 3. [place] 7.5 q.6 p.r.n. 4. Zyprexa 5 mg at night. 5. Compazine 10 mg p.o. q.4 hours. 6. Aspirin 81 mg daily. 7. Dilaudid 4 to 8 mg q.4. 8. EMLA cream p.r.n. 9. Klonopin 1 mg b.i.d. 10.Zofran 8 mg q.8 hours. REVIEW OF SYSTEMS: Fourteen-point review of systems otherwise negative. PAST MEDICAL HISTORY: Esophageal cancer, GERD, hypertension, asthma, pneumonia, sleep apnea. SURGERIES: Hemorrhoidectomy, EGD, colonoscopy, deviated septal surgery, cataracts removed. He is a current everyday smoker. He has anxiety. FAMILY HISTORY: Father with cancer, metastatic cancer, unknown age 62. Mother healthy at age 74. PHYSICAL EXAMINATION: He looks weak, cachectic. HEAD: Normocephalic, atraumatic. Pupils equal, round, reactive. NECK: Supple. No mass. RESPIRATORY: Normal lung sounds. CARDIOVASCULAR: Regular rate and rhythm. GI: Soft. EXTREMITIES: No cyanosis, clubbing, edema. Decreased skin turgor. Dry mucous membranes. VITAL SIGNS: Temperature 97.9, pulse 92, respiratory rate 16 to 18, blood pressure 90s to 110 over 60s, O2 saturation 100%. ASSESSMENT: 1. Hypokalemia. 2. Dehydration. 3. Status post chemotherapy. 4. Esophageal cancer, stage III. 5. Anemia. IV fluids, antiemetics, analgesics, potassium supplementation. Continue current treatments. Rehydrate and possible discharge home once his weakness, dehydration, hypokalemia resolved. MMODL / IJN: [id number] /
[2020-09-08 05:02] LABS: Anisocytosis Slight; Basophils % (A) 0 %; Eosinophils # (A) 0.1 k/uL (0-0.7); Eosinophils % (A) 1 %; HCT 26.1 % (39.0-53.0); HGB 8.9 gm/dL (13.0-17.5); Lymphocytes # (A) 0.4 k/uL (1.0-4.8); Lymphocytes % (A) 11 %; MCH 31.7 pg (25.0-35.0); MCHC 34.3 g/dL (31.0-37.0); MCV 92.3 fL (80.0-100.0); Mean Platelet Volume 7.4; Monocytes # (A) 0.5 k/uL (0-1.0); Monocytes % (A) 11 %; Neutrophils % (A) 73 %; Platelet Count 142 k/uL (150-450); RBC 2.82 m/uL (4.30-5.90); RDW 16.1 % (11.5-15.5); WBC 4.1 k/uL (3.8-10.6)
[2020-09-08] MEDS: SODIUM CHLORIDE 0.9% 1,000 ML IV SCH ×2 (05:18→17:45)
[2020-09-08] MEDS: LORazepam 2 MG/ML INJ IV PRN ×3 (05:51→18:28)
[2020-09-08] MEDS: HYDROmorphone 1 MG/ML 1 ML SYRINGE IVP PRN ×5 (05:51→23:14)
[2020-09-08] MEDS: ONDANSETRON 4 MG/2 ML VIAL IVP PRN ×2 (05:51→13:52)
[2020-09-08] MEDS: ASPIRIN 81 MG PO SCH (09:06)
[2020-09-08 10:54] LABS: African American GFR (CKD) 146.4 (60.0-200.0); Albumin 3.2 g/dL (3.80-4.90); Albumin/Globulin Ratio 2.13 (1.60-3.17); Anion Gap 5.5 mmol/L (4.00-12.00); Calcium 8.5 mg/dL (8.7-10.3); Carbon Dioxide 27.5 mmol/L (21.6-31.8); Globulin 1.5 g/dL (1.6-3.3); Non-African American GFR(CKD) 126.4 (60.0-200.0); Potassium 3.4 mmol/L (3.5-5.5); Total Bilirubin 0.3 mg/dL (0.2-1.2); Total Protein 4.7 g/dL (6.2-8.2)
[2020-09-08] MEDS: POTASSIUM CITRATE 5 MEQ TABLET.ER PO SCH ×2 (13:07→17:38)
[2020-09-08 13:12] VITALS: BMI 21.5
[2020-09-08] MEDS ORDERED: CALCIUM CARBONATE 500 MG CHEWABLE PO PRN (18:27)
[2020-09-08] MEDS: SERTRALINE 100 MG TAB PO SCH (23:14)
[2020-09-08] MEDS: OLANZapine 5 MG TAB PO SCH (23:14)
--- NOTE | 2020-09-08 23:33 | PN ---
PROGRESS NOTE This is a 49-year-old white male who still has poor nutrition and hypokalemia, got GI upset with oral potassium pills. Will have to give him hopefully some potassium liquid to go home on. He says [place] does nothing for his esophageal cancer and esophageal pain, possibly we will try Percocet when he goes home. He wants increase in Dilaudid with Ativan and Zofran to control any abdominal pain, nausea, vomiting. He looks weak and fatigued. Skin dry. Poor skin turgor. Dry mucous membranes. CARDIOVASCULAR: S1, S2. LUNGS: Clear. GI: Epigastric tenderness to palpation. HEMATOLOGY: Negative [place]. PSYCH: Fair mood and affect. ASSESSMENT: 1. Severe dehydration. 2. Hypokalemia. 3. Protein calorie malnutrition, moderate to severe. 4. Esophageal cancer. Prognosis extremely guarded. Continue rehydration. Pain control. Nausea control. Advance diet. Hopefully can go home in the next day or 2. MMODL / IJN: [id number] /
[2020-09-09] MEDS: HYDROmorphone 1 MG/ML 1 ML SYRINGE IVP PRN ×6 (01:53→20:59)
[2020-09-09 05:16] LABS: Basophils % (A) 0 %; Eosinophils # (A) 0.1 k/uL (0-0.7); Eosinophils % (A) 1 %; HCT 25.7 % (39.0-53.0); Lymphocytes # (A) 0.3 k/uL (1.0-4.8); Lymphocytes % (A) 5 %; MCH 32.3 pg (25.0-35.0); MCHC 34.8 g/dL (31.0-37.0); MCV 92.7 fL (80.0-100.0); Mean Platelet Volume 7.1; Monocytes # (A) 0.5 k/uL (0-1.0); Monocytes % (A) 9 %; Neutrophils # (A) 4.9 k/uL (1.3-7.7); Neutrophils % (A) 82 %; Platelet Count 159 k/uL (150-450); RBC 2.78 m/uL (4.30-5.90); RDW 15.8 % (11.5-15.5)
[2020-09-09] MEDS: ASPIRIN 81 MG PO SCH (08:46)
[2020-09-09] MEDS: SODIUM CHLORIDE 0.9% 1,000 ML IV SCH ×2 (08:56→20:36)
[2020-09-09 09:12] LABS: African American GFR (CKD) 146.4 (60.0-200.0); Albumin 3.2 g/dL (3.80-4.90); Albumin/Globulin Ratio 2.29 (1.60-3.17); Anion Gap 6.9 mmol/L (4.00-12.00); Calcium 8.3 mg/dL (8.7-10.3); Carbon Dioxide 26.1 mmol/L (21.6-31.8); Globulin 1.4 g/dL (1.6-3.3); Non-African American GFR(CKD) 126.4 (60.0-200.0); Potassium 3.3 mmol/L (3.5-5.5); Total Bilirubin 0.2 mg/dL (0.2-1.2); Total Protein 4.6 g/dL (6.2-8.2)
[2020-09-09] MEDS: POTASSIUM CHLORIDE 20 MEQ in WATER FOR INJECTION 1 100ML.BAG IVPB SCH ×2 (15:15→17:18)
[2020-09-09] MEDS: SERTRALINE 100 MG TAB PO SCH (20:50)
[2020-09-09] MEDS: OLANZapine 5 MG TAB PO SCH (20:50)
[2020-09-09] MEDS: ONDANSETRON 4 MG/2 ML VIAL IVP PRN (21:08)
[2020-09-09] MEDS: LORazepam 2 MG/ML INJ IV PRN (22:05)
--- NOTE | 2020-09-10 04:03 | PN ---
PROGRESS NOTE A 50-year-old white male with weakness, hypokalemia discussed with the today who wants him transferred down possibly to [place] tomorrow and stop his IV and see how he does without his IV and see if he gets dehydrated. Discussed home medications with possible outpatient treatment with IV fluids with potassium replacement 2 days out of the week versus transfer to [place] for stage III esophageal cancer with worsening severe dehydration despite Dobhoff tube feedings. Current treatments at this time include pain medications, anxiety medicines and nausea medicines. Prognosis guarded. Follow up as an outpatient if we transfer him down to [place]. Otherwise continue rehydration for another 24 hours and possible discharge home with outpatient IV fluids twice a week until Oncology sees him in [place] for a PET scan in a week or 2. MMODL / IJN: [id number] /
[2020-09-10] MEDS: HYDROmorphone 1 MG/ML 1 ML SYRINGE IVP PRN ×5 (05:33→22:16)
[2020-09-10] MEDS: ONDANSETRON 4 MG/2 ML VIAL IVP PRN (05:43)
[2020-09-10 06:04] LABS: Anisocytosis Slight; Basophils % (A) 0 %; Eosinophils # (A) 0.1 k/uL (0-0.7); Eosinophils % (A) 1 %; HCT 26.4 % (39.0-53.0); HGB 9.1 gm/dL (13.0-17.5); Lymphocytes # (A) 0.3 k/uL (1.0-4.8); Lymphocytes % (A) 7 %; MCH 32.1 pg (25.0-35.0); MCHC 34.5 g/dL (31.0-37.0); MCV 92.9 fL (80.0-100.0); Mean Platelet Volume 7.1; Monocytes # (A) 0.5 k/uL (0-1.0); Monocytes % (A) 10 %; Neutrophils # (A) 3.8 k/uL (1.3-7.7); Neutrophils % (A) 79 %; Platelet Count 147 k/uL (150-450); RBC 2.85 m/uL (4.30-5.90); RDW 16.1 % (11.5-15.5); WBC 4.8 k/uL (3.8-10.6)
[2020-09-10] MEDS: ASPIRIN 81 MG PO SCH (09:30)
[2020-09-10] MEDS: SODIUM CHLORIDE 0.9% 1,000 ML IV SCH ×2 (09:33→20:52)
[2020-09-10 09:40] LABS: African American GFR (CKD) 135.9 (60.0-200.0); Albumin 3.1 g/dL (3.80-4.90); Albumin/Globulin Ratio 2.21 (1.60-3.17); Anion Gap 7.2 mmol/L (4.00-12.00); Calcium 8.7 mg/dL (8.7-10.3); Carbon Dioxide 26.8 mmol/L (21.6-31.8); Globulin 1.4 g/dL (1.6-3.3); Non-African American GFR(CKD) 117.2 (60.0-200.0); Potassium 3.7 mmol/L (3.5-5.5); Total Bilirubin 0.2 mg/dL (0.3-1.2); Total Protein 4.5 g/dL (6.2-8.2)
[2020-09-10] MEDS: LORazepam 2 MG/ML INJ IV PRN ×2 (10:28→18:51)
--- NOTE | 2020-09-10 17:32 | PN ---
PROGRESS NOTE Still severe weakness and fatigue and nausea. He has stage III esophageal cancer. We are going to stop his IV tonight, start tube feedings if available, continue his IV pain medicine and see how he does overnight without his IV and then discharge home tomorrow. He is set up for 3 days a week normal saline infusions with potassium. He is set up for home oral liquid potassium as well as anti-nausea, anti-anxiety medicines, etc., for which he will be discharged home tomorrow to follow up with outpatient IV infusions until he gets his PET scan and possibly esophageal surgery in the next month. Prognosis is extremely guarded. I discussed his labs with him and his family. His hemoglobin is stable at 9.1, white count stable at 4.8, platelets are stable at 147. Sodium 143, potassium 3.7, total bilirubin 0.2. Continue with current treatments. Follow up as an outpatient. Will plan on discharging him home in the morning and check electrolytes in the morning and then he can possibly go home. MMODL / GEORGESN: [id number] /
[2020-09-10] MEDS: OLANZapine 5 MG TAB PO SCH (20:52)
[2020-09-10] MEDS: SERTRALINE 100 MG TAB PO SCH (20:52)
[2020-09-10 21:16] VITALS: RESP 16
[2020-09-11 05:40] VITALS: BP 110/57; PULSE 78; TEMP 98.5
[2020-09-11 05:44] LABS: Anisocytosis Slight; Basophils % (A) 0 %; Eosinophils # (A) 0.1 k/uL (0-0.7); Eosinophils % (A) 1 %; HGB 9.1 gm/dL (13.0-17.5); Lymphocytes # (A) 0.3 k/uL (1.0-4.8); Lymphocytes % (A) 7 %; MCH 32.5 pg (25.0-35.0); MCHC 35.1 g/dL (31.0-37.0); MCV 92.6 fL (80.0-100.0); Mean Platelet Volume 7.1; Monocytes # (A) 0.5 k/uL (0-1.0); Monocytes % (A) 10 %; Neutrophils # (A) 3.8 k/uL (1.3-7.7); Neutrophils % (A) 78 %; Platelet Count 144 k/uL (150-450); RDW 16.4 % (11.5-15.5); WBC 4.9 k/uL (3.8-10.6)
[2020-09-11] MEDS: ASPIRIN 81 MG PO SCH (07:32)
[2020-09-11] MEDS: ONDANSETRON 4 MG/2 ML VIAL IVP PRN (08:16)
[2020-09-11] MEDS: HYDROmorphone 1 MG/ML 1 ML SYRINGE IVP PRN ×2 (08:20→11:14)
[2020-09-11 09:34] LABS: African American GFR (CKD) 135.9 (60.0-200.0); Albumin/Globulin Ratio 2.31 (1.60-3.17); Anion Gap 8.2 mmol/L (4.00-12.00); BUN/Creat Ratio 8.33 Ratio (12.00-20.00); Calcium 8.5 mg/dL (8.7-10.3); Carbon Dioxide 26.8 mmol/L (21.6-31.8); Globulin 1.3 g/dL (1.6-3.3); Non-African American GFR(CKD) 117.2 (60.0-200.0); Potassium 3.4 mmol/L (3.5-5.5); Total Bilirubin 0.2 mg/dL (0.3-1.2); Total Protein 4.3 g/dL (6.2-8.2)
--- NOTE | 2020-09-29 23:14 | DS ---
DISCHARGE SUMMARY DATE OF ADMISSION: 09/09/2020 DATE OF DISCHARGE: 09/11/2020. MEDICATIONS: 1. Zoloft 200 mg daily. 2. Albuterol HFA 2 puffs q.6 hours p.r.n. 3. Compazine 10 mg q.4 p.r.n. 4. Zyprexa 5 mg daily. 5. [place] 7.5 q.6 p.r.n. 6. Aspirin 81 mg daily. 7. Zofran 8 mg p.o. q.8 hours. 8. Klonopin 1 mg b.i.d. 9. Dilaudid 8 mg q.4 hours p.r.n. 10.EMLA cream 2.5 mg daily. 11.Calcium carbonate, Tums 500 t.i.d. 12.Zofran 8 mg sublingual tablets for nausea. The patient was admitted due to severe malnutrition, severe dehydration, hyperkalemia and hyponatremia secondary to his poor oral intake secondary to esophageal cancer, metastatic. He is scheduled for possible surgery for esophageal cancer soon. He will need to follow up with outpatient IV fluids 3 times a week for severe rehydration issues. He has a Dobbhoff tube for feeding, but he has to increase his fluids with that and increase oral fluids and IV fluids to keep hydrated until he has surgery in 2- 3 weeks. Prognosis is extremely guarded. Outpatient fluid IVs will be needed 3 times a week. Please see further orders. MMCATYL / IJN: [id number] /
== END 2020-09-11 11:37 | disposition home health service (06) | DRG 640 ==
LOC: EC 11:45 → 6NMEDSUR 13:50 → OBSVTOIN 09-09 10:07
PROVIDERS: ADMIT Family Medicine; ATTEND Family Medicine
PROC: 3E0G76Z Introduction of Nutritional Substance into Upper GI, Via Natural or Artificial Opening (ICD-10-PCS; principal; 2020-09-09)
DX: E87.6 Hypokalemia (principal); E43 Unspecified severe protein-calorie malnutrition; C15.9 Malignant neoplasm of esophagus, unspecified; E86.0 Dehydration; Z68.21 Body mass index [BMI] 21.0-21.9, adult; D64.9 Anemia, unspecified; F17.210 Nicotine dependence, cigarettes, uncomplicated; F41.9 Anxiety disorder, unspecified; I10 Essential (primary) hypertension; J45.909 Unspecified asthma, uncomplicated; G47.33 Obstructive sleep apnea (adult) (pediatric); Z99.89 Dependence on other enabling machines and devices; Z87.01 Personal history of pneumonia (recurrent); Z98.42 Cataract extraction status, left eye; Z98.41 Cataract extraction status, right eye; Z96.1 Presence of intraocular lens; R11.0 Nausea; Z92.21 Personal history of antineoplastic chemotherapy; Z79.82 Long term (current) use of aspirin; Z79.899 Other long term (current) drug therapy; Z80.9 Family history of malignant neoplasm, unspecified; Z92.3 Personal history of irradiation
CPT/HCPCS: 36415; 80053; 83735; 84484; 85025; 85730; 93005; 96365; 96375; 99285

== ENCOUNTER 2021-07-20 16:47 | Emergency (ER) | payer MEDICAID, OTHER ==
[2021-07-20 17:09] VITALS: TEMP 98
[2021-07-20] MEDS ORDERED: LORazepam 2 MG/ML INJ IV STA (20:00)
[2021-07-20 20:42] LABS: Basophils % (A) 0 %; Eosinophils # (A) 0.1 k/uL (0-0.7); Eosinophils % (A) 1 %; HCT 33.5 % (39.0-53.0); Hypochromasia Slight; Lymphocytes # (A) 0.9 k/uL (1.0-4.8); Lymphocytes % (A) 8 %; MCH 31.5 pg (25.0-35.0); MCHC 32.8 g/dL (31.0-37.0); MCV 96.1 fL (80.0-100.0); Mean Platelet Volume 8.3; Monocytes # (A) 0.8 k/uL (0-1.0); Monocytes % (A) 7 %; Neutrophils # (A) 9.1 k/uL (1.3-7.7); Neutrophils % (A) 81 %; Platelet Count 374 k/uL (150-450); RBC 3.48 m/uL (4.30-5.90); RDW 14.6 % (11.5-15.5); WBC 11.2 k/uL (3.8-10.6)
[2021-07-20 20:51] LABS: INR 1.1 (<1.2); Partial Thromboplastin Time 25.1 sec (22.0-30.0); Prothrombin Time 11.7 sec (9.0-12.0)
[2021-07-20 20:55] LABS: ALT 13 U/L (4-49); AST 23 U/L (17-59); African American GFR (CKD) >90 (>60 ml/min/1.73 sqM); Albumin 3.6 g/dL (3.5-5.0); Alkaline Phosphatase 153 U/L (38-126); Anion Gap 12 mmol/L; Blood Urea Nitrogen 14 mg/dL (9-20); Calcium 9.2 mg/dL (8.4-10.2); Carbon Dioxide 21 mmol/L (22-30); Chloride 103 mmol/L (98-107); Glucose 97 mg/dL (74-99); Non-African American GFR(CKD) >90 (>60 ml/min/1.73 sqM); Potassium 4.3 mmol/L (3.5-5.1); Sodium 136 mmol/L (137-145); Total Bilirubin 0.4 mg/dL (0.2-1.3); Total Protein 6.2 g/dL (6.3-8.2)
[2021-07-20] MEDS ORDERED: HYDROmorphone 1 MG/ML 1 ML SYRINGE IVP STA (21:23)
--- NOTE | 2021-07-20 21:42 | ED ---
SOB HPI - General Chief Complaint: Shortness of Breath Stated Complaint: copd exacerbation,ct results Source: patient Mode of arrival: wheelchair Limitations: no limitations - History of Present Illness Initial Comments: Patient is a 50-year-old male with past medical history of esophageal cancer status post esophagectomy at [facility] in September [address] Stallworth who presents to the emergency department with reported shorts of breath. The patient reports that he has had increasing shortness of breath over the past 3 weeks. He has been fatigued. He rarely saw his primary care physician who placed him on Claritin-D. States he had no improvement and therefore followed again today with his primary care doctor. Primary care doctor did send him for a CT of his chest which had some abnormal results and therefore he is presenting to our hospital for further evaluation. He denies any chest pain. No nausea or vomiting. After the patient's esophagectomy he has been in remission and is currently not receiving any treatment at this time. He denies any fevers or chills. No cough. No exposure to sick contacts. No other alleviating, precipitating or modifying factors - Related Data Home Medications Medication Instructions Recorded Confirmed Sertraline [Zoloft] 200 mg PO DAILY 01/29/20 07/20/21 Albuterol Inhaler [Ventolin Hfa 1 puff INHALATION RT-Q6H PRN 05/29/20 07/20/21 Inhaler] OLANZapine [ZyPREXA] 5 mg PO HS 08/24/20 07/20/21 LORazepam [Ativan] 0.5 mg PO TID 04/09/21 07/20/21 Gabapentin [Neurontin] 300 mg PO HS 07/20/21 07/20/21 HYDROcodone/APAP 7.5-325MG [[place] 1 tab PO Q6HR PRN 07/20/21 07/20/21 7.5-325] Multivit-Min/FA/Lycopen/Lutein 1 tab PO DAILY 07/20/21 07/20/21 [Centrum Silver Men Tablet] Ondansetron Odt [Zofran ODT] 24 mg PO Q8HR PRN 07/20/21 07/20/21 Allergies Allergy/AdvReac Type Severity Reaction Status Date / Time No Known Allergies Allergy Verified 07/20/21 20:13 Review of Systems ROS Statement: Those systems with pertinent positive or pertinent negative responses have been documented in the HPI. ROS Other: All systems not noted in ROS Statement are negative. Past Medical History Past Medical History: Asthma, Cancer, Chest Pain / Angina, GERD/Reflux, Hypertension, Pneumonia, Sleep Apnea/CPAP/BIPAP Additional Past Medical History / Comment(s): Pt states he had a nuclear stress test when he was 25 or 26 yrs [id number] attributes his chest pain at that time to anxiety, ROXY with CPap, childhood asthma, bronchitis. stage 3 esophagial cancer History of Any Multi-Drug Resistant Organisms: None Reported Past Surgical History: Tonsillectomy Additional Past Surgical History / Comment(s): HEMORRHOIDECTOMY, EGD, colonoscopy, deviated septal surgery, bilateral cataract removals/lens implants. dundo Past Anesthesia/Blood Transfusion Reactions: No Reported Reaction Past Psychological History: Anxiety Smoking Status: Former smoker Past Alcohol Use History: None Reported Past Drug Use History: None Reported - Past Family History Father Family Medical History: Cancer Additional Family Medical History / Comment(s): Father of metastatic cancer (primary unknown) at the age of 62 yrs. Mother Family Medical History: No Reported History Additional Family Medical History / Comment(s): Mother is healthy and is 78yrs old. General Exam Limitations: no limitations General appearance: alert, in no apparent distress Head exam: Present: atraumatic, normocephalic, normal inspection Eye exam: Present: normal appearance, PERRL, EOMI. Absent: scleral icterus, conjunctival injection, periorbital swelling ENT exam: Present: normal exam, mucous membranes moist Neck exam: Present: normal inspection. Absent: tenderness, meningismus, lymphadenopathy Respiratory exam: Present: normal lung sounds bilaterally. Absent: respiratory distress, wheezes, rales, rhonchi, stridor Cardiovascular Exam: Present: normal rhythm, tachycardia, normal heart sounds. Absent: systolic murmur, diastolic murmur, rubs, gallop, clicks GI/Abdominal exam: Present: soft, normal bowel sounds. Absent: distended, tenderness, guarding, rebound, rigid Extremities exam: Present: normal inspection, full ROM, normal capillary refill. Absent: tenderness, pedal edema, joint swelling, calf tenderness Back exam: Present: normal inspection Neurological exam: Present: alert, oriented X3, CN II-XII intact Psychiatric exam: Present: normal affect, normal mood Skin exam: Present: warm, dry, intact, normal color. Absent: rash Course Vital Signs 07/20/21 17:06 Temperature 98 F Pulse Rate 116 H Respiratory 18 Rate Blood Pressure 113/72 O2 Sat by Pulse 98 Oximetry Medical Decision Making - Medical Decision Making Upon arrival the patient is placed into room 4. A thorough history and physical exam was performed. I did review the patient's CT report from earlier today. CT reads that the patient has a moderate 1.8 sonometer thick pericardial effusion, new moderate left pleural effusion, soft tissue stranding and trace pneumomediastinum with [place] lineation at the anastomosis. They do state that this could reflect a subtle anastomotic leak. Patient also has COPD with moderate emphysema and a new patchy right basilar infiltrate. The patient is reevaluated and I discussed these results with him. He does have a mildly elevated heart rate however he states that he is an anxious person and it is not uncommon for him to have an elevated heart rate. I requested to perform la boratory studies. Hemoglobin is 11. BNP is 418. Patient saturates 98% without oxygen. He is placed on 2 L for comfort. Patient is afebrile. I do believe the patient would benefit from transfer to [facility] where his surgeon is as this could be concern for possible anastomotic leak. Patient does agree to transfer. I called and spoke with Dr. Santana who agreed to accep t transfer the patient. Patient's is requesting his chronic pain medication and anxiety medication. We did access his port and this is provided to him. He remained comfortable throughout his stay in the emergency department and appears stable for transfer. CT demonstrates no flattening of the right ventricular atrial chamber. Patient was transferred in stable condition with a guarded prognosis - Lab Data Result diagrams: 07/20/21 20:11 07/20/21 20:11 Lab Results 07/20/21 07/20/21 07/20/21 Range/Units 20:11 20:11 20:11 WBC 11.2 H (3.8-10.6) k/uL RBC 3.48 L (4.30-5.90) m/uL Hgb 11.0 L (13.0-17.5) gm/dL Hct 33.5 L (39.0-53.0) % MCV 96.1 (80.0-100.0) fL MCH 31.5 (25.0-35.0) pg MCHC 32.8 (31.0-37.0) g/dL RDW 14.6 (11.5-15.5) % Plt Count 374 (150-450) k/uL MPV 8.3 Neutrophils % 81 % Lymphocytes % 8 % Monocytes % 7 % Eosinophils % 1 % Basophils % 0 % Neutrophils # 9.1 H (1.3-7.7) k/uL Lymphocytes # 0.9 L (1.0-4.8) k/uL Monocytes # 0.8 (0-1.0) k/uL Eosinophils # 0.1 (0-0.7) k/uL Basophils # 0.0 (0-0.2) k/uL Hypochromasia Slight PT 11.7 (9.0-12.0) sec INR 1.1 (<1.2) APTT 25.1 (22.0-30.0) sec Sodium 136 L (137-145) mmol/L Potassium 4.3 (3.5-5.1) mmol/L Chloride 103 (98-107) mmol/L Carbon Dioxide 21 L (22-30) mmol/L Anion Gap 12 mmol/L BUN 14 (9-20) mg/dL Creatinine 0.52 L (0.66-1.25) mg/dL Est GFR (CKD-EPI)AfAm >90 (>60 ml/min/1.73 sqM) Est GFR (CKD-EPI)NonAf >90 (>60 ml/min/1.73 sqM) Glucose 97 (74-99) mg/dL Calcium 9.2 (8.4-10.2) mg/dL Total Bilirubin 0.4 (0.2-1.3) mg/dL AST 23 (17-59) U/L ALT 13 (4-49) U/L Alkaline Phosphatase 153 H (38-126) U/L Troponin I (0.000-0.034) ng/mL NT-Pro-B Natriuret Pep pg/mL Total Protein 6.2 L (6.3-8.2) g/dL Albumin 3.6 (3.5-5.0) g/dL 07/20/21 07/20/21 Range/Units 20:11 20:11 WBC (3.8-10.6) k/uL RBC (4.30-5.90) m/uL Hgb (13.0-17.5) gm/dL Hct (39.0-53.0) % MCV (80.0-100.0) fL MCH (25.0-35.0) pg MCHC (31.0-37.0) g/dL RDW (11.5-15.5) % Plt Count (150-450) k/uL MPV Neutrophils % % Lymphocytes % % Monocytes % % Eosinophils % % Basophils % % Neutrophils # (1.3-7.7) k/uL Lymphocytes # (1.0-4.8) k/uL Monocytes # (0-1.0) k/uL Eosinophils # (0-0.7) k/uL Basophils # (0-0.2) k/uL Hypochromasia PT (9.0-12.0) sec INR (<1.2) APTT (22.0-30.0) sec Sodium (137-145) mmol/L Potassium (3.5-5.1) mmol/L Chloride (98-107) mmol/L Carbon Dioxide (22-30) mmol/L Anion Gap mmol/L BUN (9-20) mg/dL Creatinine (0.66-1.25) mg/dL Est GFR (CKD-EPI)AfAm (>60 ml/min/1.73 sqM) Est GFR (CKD-EPI)NonAf (>60 ml/min/1.73 sqM) Glucose (74-99) mg/dL Calcium (8.4-10.2) mg/dL Total Bilirubin (0.2-1.3) mg/dL AST (17-59) U/L ALT (4-49) U/L Alkaline Phosphatase (38-126) U/L Troponin I <0.012 (0.000-0.034) ng/mL NT-Pro-B Natriuret Pep 418 pg/mL Total Protein (6.3-8.2) g/dL Albumin (3.5-5.0) g/dL - EKG Data EKG Comments: EKG demonstrates sinus tachycardia with rate of 108. ME inteval 134. QRS 78. Qtc 418. Low voltage Disposition Clinical Impression: Esophageal cancer, Pericardial effusion, Pleural effusion, Tachycardia Disposition: OTHER INSTITUTION NOT DEFINED Condition: Serious Is patient prescribed a controlled substance at d/c from ED?: No Referrals: Kayode Ventura MD [Primary Care Provider] - 1-2 days - Out of Hospital Transfer - Req. Specs Out of Hospital Transfer - Requested Specifics: Other Emergency Center ([facility])
[2021-07-20 22:14] VITALS: BP 108/76; PULSE 114; RESP 20
== END 2021-07-20 22:35 | disposition other institution (70) ==
LOC: EC 16:47
DX: I31.3 Pericardial effusion (noninflammatory) (principal); J90 Pleural effusion, not elsewhere classified; R00.0 Tachycardia, unspecified; J45.909 Unspecified asthma, uncomplicated; K21.9 Gastro-esophageal reflux disease without esophagitis; I10 Essential (primary) hypertension; F41.9 Anxiety disorder, unspecified; Z85.01 Personal history of malignant neoplasm of esophagus; Z90.89 Acquired absence of other organs; Z87.891 Personal history of nicotine dependence
CPT/HCPCS: 99285; 96374; 96375; 36415; 93005; 83880; 80053; 84484; 85025; 85610; 85730; 87635; J2060; J1170

== ENCOUNTER → 2021-07-20 | Outpatient (CLI) | payer MEDICAID, OTHER ==
--- NOTE | 2021-07-20 16:34 | CT ---
EXAMINATION TYPE: CT chest wo con DATE OF EXAM: 07/20/2021 COMPARISON: 06/04/2020 HISTORY: 50-year-old male J44.9, COPD exacerbation SOB and fatigue TECHNIQUE: Contiguous axial scanning of the chest without IV contrast. Coronal and sagittal reconstru ctions performed. CT DLP: 258.3 mGycm Automated exposure control for dose reduction was used. FINDINGS: Right anterior chest wall injection port with catheter tip at the cavoatrial junction. Heart normal size. There is a moderate-sized pericardial effusion that has developed measuring 1.8 cm thick. No flattening of the right ventricular or atrial chamber. Three-vessel coronary artery calcif ications are present. Aorta normal caliber with mild atherosclerotic arch calcifications and conventional arch vessel branc jose anatomy. Mediastinal lymph nodes in the peritracheal region measure up to 8 mm and are slightly larger from pr ior exam but are probably reactive. Interval changes of distal esophagectomy and gastric pull-through procedure. There is some soft tissue thickening near the anastomosis, axial image 22 probably postsurgical widler e that should be reassessed at follow-up on a contrast enhanced study. 1.4 cm upper right paratracheal lymph node versus 7 mm, previously. 1.2 cm left supraclavicular lymph node is new. Trace pneumomediastinum at the level of the thoracic inlet. There is a new moderate left pleural effusion with a adjacent basilar atelectasis. Some fluid thickening the right major fissure. Moderate emphysematous change. Some patchy densities and interstitial changes in the right base have increased. More focal densities measure up to 1.6 cm and are favored to be inflammatory rather than neoplastic but need to be reasse ssed at follow-up. Visualized upper abdomen shows stable thickening of the left adrenal gland without discrete nodularit y. Generalized anasarca change. Bones: No osseous destructive process. Mild to moderate degenerative disc disease mid thoracic spine with accentuated kyphosis. IMPRESSION: 1. INTERVAL ESOPHAGECTOMY WITH GASTRIC PULL-THROUGH PROCEDURE. CORRELATE TO TIME SINCE THE PATIENT 'S SURGERY THERE IS POOR DELINEATION ALONG THE ANASTOMOSIS AT THE UPPER THIRD CHEST, AXIAL IMAGE 2 2. THIS COULD REPRESENT SOME POSTSURGICAL INFLAMMATION. 2. IF THERE HAS BEEN ADEQUATE POSTOPERATIVE TIME, THE PRESENCE OF A MODERATE (1.8 CM THICK) PERICARDI AL EFFUSION, NEW MODERATE LEFT PLEURAL EFFUSION, SOFT TISSUE STRANDING, TRACE PNEUMOMEDIASTINUM, AND POOR DELINEATION AT THE ANASTOMOSIS COULD REFLECT A SUBTLE ANASTOMOTIC LEAK. CLINICAL CORRELATION IS NEEDED. 3. COPD with MODERATE EMPHYSEMA. NEW PATCHY RIGHT BASILAR INFILTRATES COULD REPRESENT ASPIRATION OR P NEUMONIA. SOME OF THESE AREAS HAVE A NODULAR CONFIGURATION MEASURING UP TO 1.6 CM AND SHOULD BE REASS ESSED AT A 6-8 WEEK FOLLOW-UP CT TO ENSURE CLEARANCE AND EXCLUDE NEOPLASM. 4. UPPER RIGHT PARATRACHEAL AND LEFT SUPRACLAVICULAR LYMPH NODES HAVE INCREASED IN SIZE CURRENTLY DAVID SURING UP TO 1.4 CM. THEY MAY BE REACTIVE AND SHOULD ALSO BE REASSESSED AT FOLLOW-UP.
== END | disposition home or self-care (01) ==
LOC: RADCTMAIN 15:50
PROVIDERS: ATTEND Family Medicine
DX: J44.1 Chronic obstructive pulmonary disease with (acute) exacerbation (principal)
CPT/HCPCS: 71250